=== PATIENT | male | born 1930 | race Caucasian/White ===

== ENCOUNTER 2018-06-22 09:42 | Emergency (ER) | payer MEDICARE ==
--- NOTE | 2018-06-22 09:57 | C.PDOC ---
History Of Present Illness 87 y/o male brought to ED by EMS after being called by [facility] for patient continuously presenting to police department asking for his check. 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 At ED patient is AAOx3, c/o unhealed wound to left leg for 1 month and denies any chest pain, nausea, vomiting or any other complaints at this time. Time Seen by Provider: 06/22/18 09:55 Chief Complaint (Nursing): Medical Clearance History Per: Patient History/Exam Limitations: no limitations Onset/Duration Of Symptoms: Days Current Symptoms Are (Timing): Still Present Past Medical History Reviewed: Historical Data, Nursing Documentation, Vital Signs Vital Signs: Last Vital Signs Temp 97.6 F 06/22/18 11:45 Pulse 54 L 06/22/18 13:30 Resp 18 06/22/18 13:30 BP 156/81 H 06/22/18 13:30 Pulse Ox 98 06/22/18 14:02 - Medical History PMH: No Chronic Diseases Surgical History: No Surg Hx Family History: States: No Known Family Hx - Social History Hx Tobacco Use: No Hx Alcohol Use: No Hx Substance Use: No - Immunization History Hx Tetanus Toxoid Vaccination: No Hx Influenza Vaccination: No Hx Pneumococcal Vaccination: No Review Of Systems Except As Marked, All Systems Reviewed And Found Negative. Musculoskeletal: Positive for: Leg Pain Neurological: Positive for: Confusion Physical Exam - Physical Exam Appears: Non-toxic, No Acute Distress Skin: Warm, Dry, No Rash Head: Atraumatic, Normacephalic Eye(s): bilateral: Normal Inspection Oral Mucosa: Moist Cardiovascular: Rhythm Regular Respiratory: Normal Breath Sounds, No Rales, No Rhonchi, No Wheezing Gastrointestinal/Abdominal: Soft, No Tenderness, No Guarding, No Rebound Extremity: Capillary Refill (<2 seconds), No Deformity, Swelling (and erythema to left lower mid tib/fib region) Pulses: Left Dorsalis Pedis: Normal Neurological/Psych: Oriented x3 (with occasional confusion), Normal Speech, Normal Cognition, Normal Motor, Normal Sensation ED Course And Treatment - Laboratory Results Result Diagrams: 06/22/18 10:02 06/22/18 10:02 ECG: Interpreted By Me, Viewed By Me ECG Rhythm: Sinus Rhythm, Nonspecific Changes Interpretation Of ECG: NSR @62 Bpm, Q-wave on lead 3, non specific t wave changes Rate From EC (BPM) O2 Sat by Pulse Oximetry: 98 (RA) Pulse Ox Interpretation: Normal Medical Decision Making Medical Decision Making: Assessment: Confusion Progress: Patient seen by case management Nora, her point of view, patient is okay for discharge. I tried calling home, no answer. Patient is AAOx3, knows his address, is well kept. At this time patient stable for discharge Patient discharged with diagnosis of Cellulitis/confusion resolved, instructed to follow up in 2 dyas with PMD Repeat BP: 158/62 Disposition Counseled Patient/Family Regarding: Studies Performed, Diagnosis, Need For Followup, Rx Given - Disposition Referrals: [facility] [Outside] Disposition: HOME/ ROUTINE Disposition Time: 14:03 Condition: STABLE Additional Instructions: follow up with Dr. Mercer within 2 days call to make an appointment take medications as prescribed return to ER if symptoms worsens or progress Prescriptions: Cephalexin [Keflex] 500 mg PO QID #40 capsule Instructions: Cellulitis (Skin Infection), Adult (DC) Forms: Gen Discharge Inst Bulgarian, Flipzu (Bulgarian) Print Language: UPPER SORBIAN - Clinical Impression Clinical Impression: Cellulitis - Scribe Statement The provider has reviewed the documentation as recorded by the Stephenie Ospina All medical record entries made by the Americoibdaysi were at my direction and personally dictated by me. I have reviewed the chart and agree that the record accurately reflects my personal performance of the history, physical exam, medical decision making, and the department course for this patient. I have also personally directed, reviewed, and agree with the discharge instructions and disposition.
[2018-06-22 10:11] LABS: BASO % 0.7 % (0.0-2.0); EOS # 0.1 K/uL (0.0-0.7); EOS % 2.3 % (0.0-4.0); HEMOGLOBIN 12.2 g/dL (12.0-18.0); LYMPH # 1.7 K/uL (1.0-4.3); LYMPH % 34.4 % (20.0-40.0); MEAN CELL VOLUME 80.5 fL (80.0-94.0); MEAN CORPUSCULAR HEMOGLOBIN 26.8 pg (27.0-31.0); MEAN CORPUSCULAR HGB CONC 33.3 g/dL (33.0-37.0); MEAN PLATELET VOLUME 8.2 fL (7.2-11.7); MONO # 0.5 K/uL (0.0-0.8); MONO % 9.9 % (0.0-10.0); NEUT # 2.6 K/uL (1.8-7.0); NEUT % 52.7 % (50.0-75.0); RBC 4.56 Mil/uL (4.40-5.90); RED CELL DISTRIBUTION WIDTH 19.1 % (11.5-14.5)
[2018-06-22 10:16] LABS: INR 1.1; PROTHROMBIN TIME 11.7 SECONDS (9.7-12.2)
[2018-06-22 10:21] LABS: ALB/GLOB RATIO 1.2 (1.0-2.1); ALBUMIN 4.1 g/dL (3.5-5.0); ALT/SGPT 25 U/L (21-72); AST/SGOT 30 U/L (17-59); BLOOD UREA NITROGEN 16 mg/dL (9-20); CALCIUM 9.5 mg/dl (8.6-10.4); GFR NON-AFRICAN AMERICAN > 60
[2018-06-22 10:26] LABS: SQUAMOUS EPITHIAL < 1 /hpf (0-5); URINE BILIRUBIN NEGATIVE (NEGATIVE); URINE BLOOD 2+ (NEGATIVE); URINE CLARITY Clear (Clear); URINE COLOR Yellow (YELLOW); URINE GLUCOSE (UA) NORMAL (Normal); URINE LEUKOCYTE ESTERASE NEG Leu/uL (Negative); URINE PROTEIN NEGATIVE (NEGATIVE); URINE UROBILINOGEN NORMAL mg/dL (0.2-1.0)
[2018-06-22 10:48] LABS: BARBITURATES, UR NEGATIVE (NEGATIVE); BENZODIAZEPINES, UR NEGATIVE (NEGATIVE); OPIATES, UR NEGATIVE (NEGATIVE); PHENCYCLIDINE, UR NEGATIVE (NEGATIVE)
--- NOTE | 2018-06-22 11:42 | RAD ---
HISTORY: AMS COMPARISON: None available TECHNIQUE: Chest PA and lateral FINDINGS: LUNGS: Increased lucencies especially within the bilateral upper lung cabrera compatible with underlying emphysema. Biapical pleural thickening. None scattered nodular opacities at the lung bases. 8 mm nodular density at the left lung base may be related to nipple shadow. No focal consolidation. Please note that chest x-ray has limited sensitivity for the detection of pulmonary masses. PLEURA: No significant pleural effusion identified. No definite pneumothorax . CARDIOVASCULAR: Cardiomegaly. Markedly ectatic aorta. Dense atherosclerotic calcifications. OSSEOUS STRUCTURES: Degenerative changes of the spine. VISUALIZED UPPER ABDOMEN: Unremarkable. OTHER FINDINGS: None. IMPRESSION: Emphysematous changes. Biapical pleural thickening. None scattered nodular opacities at the lung bases. 8 mm nodular density at the left lung base may be related to nipple shadow. Repeat chest x-ray with nipple markers may be considered. Cardiomegaly. Markedly ectatic aorta. Dense atherosclerotic calcifications.
[2018-06-22 11:53] VITALS: TEMP 97.6
--- NOTE | 2018-06-22 12:42 | CT ---
Date of service: 06/22/2018 PROCEDURE: CT HEAD WITHOUT CONTRAST. HISTORY: AMS COMPARISON: Comparison made with prior CT scan brain dated 08/25/2013. TECHNIQUE: Axial computed tomography images were obtained through the head/brain without intravenous contrast. Radiation dose: Total exam DLP = 919.4 mGy-cm. This CT exam was performed using one or more of the following dose reduction techniques: Automated exposure control, adjustment of the mA and/or kV according to patient size, and/or use of iterative reconstruction technique. FINDINGS: HEMORRHAGE: No acute parenchymal, subarachnoid or extra-axial hemorrhage. BRAIN: Moderate diffuse and confluent chronic white matter ischemic changes seen extending peripherally into the deep and subcortical white matter both cerebral hemispheres. Additionally, there are multiple more discrete chronic lacunar-type infarcts scattered about both basal nuclei extending superiorly into the dennis radiata. Chronic infarct changes in the left harshil versus crossing streak and beam hardening artifact. Note that the possibility of a small hyperacute infarct cannot be excluded on study. No obvious parenchymal nor extra-axial mass or collection seen on this noncontrast study. Moderate to fairly significant generalized volume loss. Vascular calcifications of the cavernous carotid and vertebral arteries. VENTRICLES: No obstructive hydrocephalus. CALVARIUM: No acute calvarial fractures. PARANASAL SINUSES: Mild mucosal thickening both maxillary antra. moderate mucosal thickening. Polypoid like focus mucosal thickening right chamber sphenoid sinus. Minor mucosal thickening noted within a few ethmoid air cells MASTOID AIR CELLS: Unremarkable as visualized. No inflammatory changes. OTHER FINDINGS: Changes of bilateral cataract surgery IMPRESSION: Moderate diffuse and confluent chronic white matter ischemic changes seen extending peripherally into the deep and subcortical white matter both cerebral hemispheres. Additionally, there are multiple more discrete chronic lacunar-type infarcts scattered about both basal nuclei extending superiorly into the dennis radiata. Chronic infarct changes in the left harshil versus crossing streak and beam hardening artifact. Note that the possibility of a small hyperacute infarct cannot be excluded on study. Moderate to fairly significant generalized volume loss.
--- NOTE | 2018-06-22 12:54 | RAD ---
Date of service: 06/22/2018 PROCEDURE: Radiographs of the left tibia and fibula. HISTORY: left swelling COMPARISON: None available. TECHNIQUE: Frontal and lateral views obtained. FINDINGS: BONES: No evidence of acute displaced fracture nor dislocation. Osseous structures appear intact. No obvious cortical destructive changes. Small anterior superior/inferior patellar enthesophyte. Tiny enthesophyte seen arising from the the tubercle. Suspect small suprapatellar joint effusion. . There are small calcaneal posterior and plantar surface calcaneal enthesophytes. . Mild vascular calcifications JOINT SPACES: Mild degenerative osteoarthritis left knee with questionable small on corticated intra-articular loose body. Mild degenerative osteoarthritis left tibiotalar articulation. OTHER FINDINGS: Mild diffuse infiltration changes within the subcutaneous the tissues nonspecific. Rule out cellulitis versus vascular etiologies. IMPRESSION: Mild diffuse infiltration changes subcutaneous tissues of uncertain etiology ; rule out cellulitis versus vascular causes. No acute fractures or evidence of cortical destructive changes.
[2018-06-22 14:23] VITALS: BP 163/69; PULSE 59; RESP 20; O2SAT 96
--- NOTE | 2018-06-22 17:40 | CARD ---
APPROVED REPORT Date of service: 06/22/2018 EKG Measurement Heart [id number] <Conclusion> Sinus rhythm with premature atrial complexes Possible Inferior infarct, age undetermined Abnormal ECG
--- NOTE | 2018-06-25 10:31 | VASCLAB ---
Date of service: 06/22/2018 PROCEDURE: Left Lower Extremity Venous Duplex Exam. HISTORY: leg swelling PRIORS: None. TECHNIQUE: Left common femoral, femoral, popliteal and posterior tibial, peroneal and great saphenous veins were evaluated. Flow was assessed with color Doppler, compressibility, assessment of phasic flow and augmentation response. Report prepared by CÉSAR Nava, RVT FINDINGS: LEFT: 1. Common Femoral Vein: 1.1. Compressibility - Fully compressible: Thrombus - None : Flow - Phasic: Augmentation -Normal: Reflux - None. 2. Femoral Vein: 2.1. Compressibility - Fully compressible: Thrombus - None: Flow - Phasic: Augmentation -Normal: Reflux - None. 3. Popliteal Vein: 3.1. Compressibility - Fully compressible: Thrombus - None: Flow - Phasic: Augmentation -Normal: Reflux - None. 4. Posterior Tibial Vein: 4.1. Compressibility - Fully compressible: Thrombus - None: Flow - Phasic: Augmentation -Normal: Reflux - None. 5. Peroneal Vein: 5.1. Compressibility - Fully compressible: Thrombus - None: Flow - Phasic: Augmentation -Normal: Reflux - None. 6. Great Saphenous Vein: 6.1. Compressibility - Fully compressible: Thrombus - None: Flow - Phasic: Augmentation - Normal: Reflux - None. OTHER FINDINGS: IMPRESSION: No evidence of deep or superficial vein thrombosis of the left lower extremity with excellent venous flow. Normal valve function noted of the left side. Normal venous flow noted in the right common femoral vein.
== END 2018-06-22 15:11 | disposition home or self-care (01) ==
LOC: C.ER 09:42
DX: L03.116 Cellulitis of left lower limb (principal)
CPT/HCPCS: 70450; 71046; 73590; 80053; 81001; 82140; 82948; 84443; 84484; 85025; 85610; 85730; 87086; 93005; 93971; 99285; G0480

== ENCOUNTER 2018-08-26 11:01 | Inpatient (IN) | payer MEDICARE ==
[~2018-08-26 11:01] MED LIST: Collagenase 250 Units/gm Ointment(30 gm) TOP ONE
[2018-08-26 11:49] LABS: BASO % 0.9 % (0.0-2.0); EOS # 0.1 K/uL (0.0-0.7); EOS % 1.7 % (0.0-4.0); HEMOGLOBIN 11.5 g/dL (12.0-18.0); LYMPH # 1.1 K/uL (1.0-4.3); LYMPH % 28.3 % (20.0-40.0); MEAN CELL VOLUME 82.7 fL (80.0-94.0); MEAN CORPUSCULAR HEMOGLOBIN 27.5 pg (27.0-31.0); MEAN CORPUSCULAR HGB CONC 33.2 g/dL (33.0-37.0); MEAN PLATELET VOLUME 7.6 fL (7.2-11.7); MONO # 0.3 K/uL (0.0-0.8); MONO % 8.9 % (0.0-10.0); NEUT # 2.3 K/uL (1.8-7.0); NEUT % 60.2 % (50.0-75.0); RBC 4.21 Mil/uL (4.40-5.90); RED CELL DISTRIBUTION WIDTH 15.8 % (11.5-14.5); WHITE BLOOD COUNT 3.8 K/uL (4.8-10.8)
[2018-08-26 11:59] LABS: BLOOD UREA NITROGEN 17 mg/dL (9-20); CALCIUM 9.4 mg/dl (8.6-10.4); GFR NON-AFRICAN AMERICAN > 60
--- NOTE | 2018-08-26 12:29 | C.PDOC ---
History Of Present Illness 88 y/o male, GUSTABO, with history of dementia, presents to ED complaining of left leg pain. 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 States that patient kept coming back to the station to collect his paycheck but has not worked in years. Patient was seen here on 06/22/18; as per note, patient complained of unhealed wound on the left leg x1 month. Noted AAOx3 and was discharged on Keflex. HPI is limited due to his clinical condition. <VasylSasha - Last Filed: 08/26/18 13:29> History Per: Patient Onset/Duration Of Symptoms: Days Current Symptoms Are (Timing): Still Present <Sasha Fallon - Last Filed: 08/26/18 13:29> <Christi Henderson - Last Filed: 08/26/18 18:42> Time Seen by Provider: 08/26/18 11:19 Chief Complaint (Nursing): Altered Mental Status Past Medical History Reviewed: Historical Data, Nursing Documentation, Vital Signs Vital Signs: Last Vital Signs Temp 98.1 F 08/26/18 11:03 Pulse 74 08/26/18 11:03 Resp 18 08/26/18 11:03 BP 140/88 08/26/18 11:03 Pulse Ox 97 08/26/18 11:03 - Medical History PMH: Denies: Chronic Kidney Disease Family History: States: No Known Family Hx - Social History Hx Tobacco Use: No Hx Alcohol Use: No Hx Substance Use: No - Immunization History Hx Tetanus Toxoid Vaccination: No Hx Influenza Vaccination: No Hx Pneumococcal Vaccination: No <VasylSasha - Last Filed: 08/26/18 13:29> Vital Signs: Last Vital Signs Temp 98.3 F 08/26/18 13:51 Pulse 61 08/26/18 13:50 Resp 18 08/26/18 13:50 BP 159/66 H 08/26/18 13:50 Pulse Ox 100 08/26/18 13:50 <Christi Henderson - Last Filed: 08/26/18 18:42> Review Of Systems Except As Marked, All Systems Reviewed And Found Negative. Constitutional: Negative for: Fever, Chills Cardiovascular: Negative for: Chest Pain Respiratory: Negative for: Shortness of Breath Musculoskeletal: Positive for: Leg Pain (left) Skin: Negative for: Rash Neurological: Negative for: Weakness, Numbness <Sasha Fallon Last Filed: 08/26/18 13:29> Musculoskeletal: Positive for: Leg Pain <Christi Henderson Last Filed: 08/26/18 18:42> Physical Exam - Physical Exam Appears: Non-toxic, No Acute Distress Skin: Warm, Dry, Other (Healing wound on left leg) Head: Atraumatic Eye(s): bilateral: Normal Inspection Oral Mucosa: Moist Cardiovascular: Rhythm Regular, No Murmur Respiratory: Normal Breath Sounds, No Rales, No Rhonchi, No Wheezing Extremity: No Pedal Edema, No Calf Tenderness, Capillary Refill (less than 2 seconds) <Sasha Fallon Last Filed: 08/26/18 13:29> - Physical Exam Skin: Other <Christi Henderson Last Filed: 08/26/18 18:42> ED Course And Treatment - Laboratory Results Result Diagrams: 08/26/18 11:44 08/26/18 11:44 O2 Sat by Pulse Oximetry: 97 (RA) Pulse Ox Interpretation: Normal - Other Rad L TIB FIB X-Ray: Interpreted by Me (NEG) <Sasha Fallon Last Filed: 08/26/18 13:29> - Laboratory Results Result Diagrams: 08/26/18 11:44 08/26/18 11:44 - CT Scan/US CT Head Other Rad Studies (CT/US): Read By Radiologist, Radiology Report Reviewed CT/US Interpretation: FINDINGS: HEMORRHAGE: No intracranial hemorrhage. BRAIN: Good corticomedullary differentiation is seen. Reiterated diffuse cerebral atrophy and chronic microangiopathy. No suspicious extra-axial fluid collection is identified and the midline brain anatomy appears grossly nonfocal as imaged. By thalamic chronic lacunes reiterated. No positive mass effect throughout. Bilateral cavernous ICA and bilateral distal cervical vertebral arterial atherosclerosis reiterated. VENTRICLES: Unremarkable. No hydrocephalus. CALVARIUM: Unremarkable. PARANASAL SINUSES: Limited bilateral ethmoid sinus disease appreciated. MASTOID AIR CELLS: Unremarkable as visualized. No inflammatory changes. OTHER FINDINGS: None. IMPRESSION: Stable age related neuro degenerative changes are identified without definite acute intracranial findings once again. <Christi Henderson Last Filed: 08/26/18 18:42> Progress - Re-Evaluation Re-evaluation Note: 08/26/18 12:55 PER PRIOR ER RECORD, PMD = DR VARGAS D/W DR VARGAS AWARE OF ER FINDINGS WILL ADMIT. CT, CXR PENDING 08/26/18 13:02 MED RESIDENT NOTIFIED - Data Reviewed Data Reviewed: Lab, Diagnostic imaging, EKG <Sasha Fallon - Last Filed: 08/26/18 13:29> Medical Decision Making Medical Decision Making: Plan: --CT Head --EKG --Labs --Chest X-Ray --Ancef --Left Tibia Fibula X-Ray <Sasha Fallon - Last Filed: 08/26/18 13:29> Disposition Counseled Patient/Family Regarding: Studies Performed, Diagnosis - Disposition Disposition Time: 13:00 - POA Present On Arrival: None <Sasha Fallon - Last Filed: 08/26/18 13:29> <Christi Henderson - Last Filed: 08/26/18 18:42> - Disposition Disposition: HOSPITALIZED Condition: SERIOUS - Clinical Impression Clinical Impression: Cellulitis, Confusion - Scribe Statement The provider has reviewed the documentation as recorded by the Stephenie Gomez Provider Attestation: All medical record entries made by the Stephenie were at my direction and personally dictated by me. I have reviewed the chart and agree that the record accurately reflects my personal performance of the history, physical exam, medical decision making, and the department course for this patient. I have also personally directed, reviewed, and agree with the discharge instructions and disposition. <Sasha Fallon - Last Filed: 08/26/18 13:29> Addendum Addendum: 08/26/18 18:42 CARISA Henderson had no involvement in the care or contact with this patient <Christi Henderson - Last Filed: 08/26/18 18:42>
[2018-08-26] MEDS ORDERED: ceFAZolin IV 1 gm in Dextrose 1 GM/50 ML BAG IVPB STA (12:54)
[2018-08-26] MEDS ORDERED: ceFAZolin 1 gm in NS 1 GM/100 ML BAG IVPB ONE (13:14)
--- NOTE | 2018-08-26 13:36 | CT ---
Date of service: 08/26/2018 PROCEDURE: CT HEAD WITHOUT CONTRAST. HISTORY: AMS COMPARISON: None available. TECHNIQUE: Axial computed tomography images were obtained through the head/brain without intravenous contrast. Radiation dose: Total exam DLP = 1076.33 mGy-cm. This CT exam was performed using one or more of the following dose reduction techniques: Automated exposure control, adjustment of the mA and/or kV according to patient size, and/or use of iterative reconstruction technique. FINDINGS: HEMORRHAGE: No intracranial hemorrhage. BRAIN: Good corticomedullary differentiation is seen. Reiterated diffuse cerebral atrophy and chronic microangiopathy. No suspicious extra-axial fluid collection is identified and the midline brain anatomy appears grossly nonfocal as imaged. By thalamic chronic lacunes reiterated. No positive mass effect throughout. Bilateral cavernous ICA and bilateral distal cervical vertebral arterial atherosclerosis reiterated. VENTRICLES: Unremarkable. No hydrocephalus. CALVARIUM: Unremarkable. PARANASAL SINUSES: Limited bilateral ethmoid sinus disease appreciated. MASTOID AIR CELLS: Unremarkable as visualized. No inflammatory changes. OTHER FINDINGS: None. IMPRESSION: Stable age related neuro degenerative changes are identified without definite acute intracranial findings once again.
--- NOTE | 2018-08-26 14:40 | CP.PCM.HP ---
History of Present Illness - History of Present Illness History of Present Illness: History and Physical - Dr. Mercer's Service HPI: 88 y/o male with PMHx of CAD presents to the emergency room via EMS with confusion and LLE cellulitis. 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 The police sent him to the emergency room via EMS because of his confusion. Of note, he also has been having a LLE wound present for 15 days. Patient is concerned about his wound, and thinks this is the only reason why he is in the hospital. Patient is a poor historian. Although he knows his name and , he thinks the year is 1979. He was unaccompanied in the emergency room, but his son's number was able to be obtained. Providers spoke briefly to his son to try to get a good history. Patient denies pain in his wound and thinks it has stayed the same for 15 days: redness around a black eschar. It has never been tender and he has been using menthol on it. Denies fever, chills, headaches, dizziness, nausea/vomiting, diarrhea, sore throat, cough, chest pain, shortness of breath, recent travels, sick contact, weight changes. ROS: as per HPI PMHx: per son, CAD PSHx: per son, patient had a heart surgery and has stents 4 years ago FHx: Denies SocHx: denies tobacco, EtOH is social; three or less glasses of beer or wine in a weekend, denies illicit drugs. 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 in [place] but no longer works per emergency room Meds: per son: metoprolol 25 mg, lisinopril 20 mg, atorvastatin 40 mg, aspirin 81 mg Allergies: NKDA Present on Admission - Present on Admission Any Indicators Present on Admission: Yes Review of Systems - Constitutional Constitutional: As Per HPI Past Patient History - Past Social History Smoking Status: Never Smoked - CARDIAC Hx Cardiac Disorders: No - PULMONARY Hx Respiratory Disorders: No - NEUROLOGICAL Hx Neurological Disorder: No - HEENT Hx HEENT Problems: No - RENAL Hx Chronic Kidney Disease: No - ENDOCRINE/METABOLIC Hx Endocrine Disorders: No - HEMATOLOGICAL/ONCOLOGICAL Hx Blood Disorders: No - INTEGUMENTARY Hx Dermatological Problems: No - MUSCULOSKELETAL/RHEUMATOLOGICAL Hx Musculoskeletal Disorders: No - GASTROINTESTINAL Hx Gastrointestinal Disorders: No - GENITOURINARY/GYNECOLOGICAL Hx Genitourinary Disorders: No - PSYCHIATRIC Hx Substance Use: No - SURGICAL HISTORY Hx Surgeries: Yes Hx Herniorrhaphy: Yes - ANESTHESIA Hx Anesthesia: No Meds Allergies/Adverse Reactions: Allergies Allergy/AdvReac Type Severity Reaction Status Date / Time No Known Allergies Allergy Verified 08/26/18 11:09 Physical Exam - Constitutional Appears: Well, No Acute Distress - Head Exam Head Exam: ATRAUMATIC, NORMAL INSPECTION - Eye Exam Eye Exam: EOMI, Normal appearance, PERRL - ENT Exam ENT Exam: Mucous Membranes Moist - Neck Exam Neck exam: Positive for: Normal Inspection. Negative for: Lymphadenopathy - Respiratory Exam Respiratory Exam: Clear to Auscultation Bilateral, NORMAL BREATHING PATTERN - Cardiovascular Exam Cardiovascular Exam: REGULAR RHYTHM - GI/Abdominal Exam GI & Abdominal Exam: Normal Bowel Sounds, Soft - Extremities Exam Additional comments: left anterior tibialis with black eschar approx 5 cm x 2 cm with surrounding erythema, warm but nontender 2+ pitting edema bilaterally on tibias and ankles - Neurological Exam Additional comments: Alert and oriented x 2 (does not know the year) - Psychiatric Exam Psychiatric exam: Normal Affect, Normal Mood Results - Vital Signs Recent Vital Signs: Last Vital Signs Temp 98.3 F 08/26/18 13:51 Pulse 61 08/26/18 13:50 Resp 18 08/26/18 13:50 BP 159/66 H 08/26/18 13:50 Pulse Ox 100 08/26/18 13:50 - Labs Result Diagrams: 08/26/18 11:44 08/26/18 11:44 Labs: Laboratory Results - last 24 hr 08/26/18 08/26/18 11:44 11:44 WBC 3.8 L RBC 4.21 L Hgb 11.5 L Hct 34.8 L MCV 82.7 D MCH 27.5 MCHC 33.2 RDW 15.8 H Plt Count 215 MPV 7.6 Neut % (Auto) 60.2 Lymph % (Auto) 28.3 [place] % (Auto) 8.9 Eos % (Auto) 1.7 Baso % (Auto) 0.9 Neut # (Auto) 2.3 Lymph # (Auto) 1.1 [place] # (Auto) 0.3 Eos # (Auto) 0.1 Baso # (Auto) 0.0 Sodium 146 Potassium 3.9 Chloride 108 H Carbon Dioxide 26 Anion Gap 15 BUN 17 Creatinine 0.9 Est GFR ( Amer) > 60 Est GFR (Non-Af Amer) > 60 Random Glucose 84 Calcium 9.4 Assessment & Plan - Assessment and Plan (Free Text) Assessment: 88 y/o male with hx of CAD presents to the emergency room with confusion and LLE cellulitis. Patient is hemodynamically stable and will be admitted as inpatient under Dr. Mercer's service. LLE cellulitis -patient currently afebrile, VS stable, and no leukocytosis -ED gave cefazolin 1g IV x 1 -cefazolin 1g IV TID x 7-14 days depending on clinical improvement -maida cellulitic borders in ED and track changes daily -if AMS resolves and LLE improving during hospitalization, consider transition to PO abx for discharge -consult ID as needed Altered mental status -unsure of baseline mental status; will inquire son -2/2 metabolic vs. encephalopathy vs. infectious -CT head negative r/o CVA -maintain sleep hygiene/sleep-wake cycle as inpatient -B12, RPR, TSH pending -CXR pending -UA and urine drug screen pending; per RN patient still needs to give a urine sample CAD -c/w metoprolol tartrate 25 mg -c/w lisinopril 20 mg -c/w atorvastatin 40 mg -c/w aspirin 81 mg Code: full DVT ppx: lovenox 40 mg q12 sq GI ppx: protonix 40 mg PO Son Yonny): [phone] Ruslan Lewis PGY1 Decision To Admit - Pt Status Changed To: Hospital Disposition Of: Inpatient - Admit Certification Admit to Inpatient:: After my assessment, the patient will require hospitalization for at least two midnights. This is because of the severity of symptoms shown, intensity of services needed, and/or the medical risk in this patient being treated as an outpatient. - InPatient: Physician Admission Certification:: Ruslan - . Bed Request Type: Telemetry
[2018-08-26] MEDS ORDERED: ceFAZolin IV 1 gm in Dextrose 1 GM/50 ML BAG IVPB SCH (15:30)
[2018-08-26 15:48] LABS: URINE BILIRUBIN NEGATIVE (NEGATIVE); URINE BLOOD 1+ (NEGATIVE); URINE CLARITY Clear (Clear); URINE COLOR Yellow (YELLOW); URINE GLUCOSE (UA) NORMAL (Normal); URINE LEUKOCYTE ESTERASE NEG Leu/uL (Negative); URINE PROTEIN NEGATIVE (NEGATIVE); URINE UROBILINOGEN NORMAL mg/dL (0.2-1.0)
[2018-08-26 16:05] LABS: BARBITURATES, UR NEGATIVE (NEGATIVE); BENZODIAZEPINES, UR NEGATIVE (NEGATIVE); OPIATES, UR NEGATIVE (NEGATIVE); PHENCYCLIDINE, UR NEGATIVE (NEGATIVE)
--- NOTE | 2018-08-26 17:01 | RAD ---
Date of service: 08/26/2018 PROCEDURE: Radiographs of the left tibia and fibula. HISTORY: WOUND COMPARISON: None available. TECHNIQUE: Frontal and lateral views obtained. FINDINGS: BONES: No fracture or destructive lesion. JOINT SPACES: Unremarkable. OTHER FINDINGS: Reticular markings are increased at the mid to distal leg subcutaneous fat of uncertain origin. No gross dermal thickening accompanying the finding that would be suspicious for cellulitis. IMPRESSION: No acute fracture dislocation left tibia or fibula. Questionable edema in the subcutaneous fat of the mid to distal distal left leg soft tissues
[2018-08-26 17:02] VITALS: RESP 20
--- NOTE | 2018-08-26 17:11 | RAD ---
Date of service: 08/26/2018 PROCEDURE: CHEST RADIOGRAPH, 1 VIEW HISTORY: AMS COMPARISON: Chest radiographs 06/22/2018. FINDINGS: LUNGS: No interval pulmonary disease appreciated bilaterally. PLEURA: No pneumothorax or pleural fluid seen. CARDIOVASCULAR: Stable cardiomegaly. No pulmonary vascular congestion. Calcific atherosclerotic changes are seen related to the thoracic aorta. OSSEOUS STRUCTURES: No significant abnormalities. VISUALIZED UPPER ABDOMEN: Normal. OTHER FINDINGS: None. IMPRESSION: No interval acute cardiopulmonary disease appreciable. Cardiomegaly stable.
[2018-08-27] MEDS ORDERED: Pantoprazole 40 mg EC Tab PO SCH (10:00)
[2018-08-27] MEDS ORDERED: Enoxaparin 40 mg Syringe SC SCH (10:00)
[2018-08-27] MEDS ORDERED: Pneumococcal 23-Valent Vaccine IM ONE (10:00)
--- NOTE | 2018-08-27 10:31 | CP.PCM.DIS ---
Provider - Provider Date of Admission: 08/26/18 13:02 Attending physician: Godwin Mercer Jr, MD Time Spent in preparation of Discharge (in minutes): 45 Hospital Course - Lab Results Lab Results: Most Recent Lab Values WBC 3.8 K/uL (4.8-10.8) L 08/26/18 11:44 RBC 4.21 Mil/uL (4.40-5.90) L 08/26/18 11:44 Hgb 11.5 g/dL (12.0-18.0) L 08/26/18 11:44 Hct 34.8 % (35.0-51.0) L 08/26/18 11:44 MCV 82.7 fL (80.0-94.0) D 08/26/18 11:44 MCH 27.5 pg (27.0-31.0) 08/26/18 11:44 MCHC 33.2 g/dL (33.0-37.0) 08/26/18 11:44 RDW 15.8 % (11.5-14.5) H 08/26/18 11:44 Plt Count 215 K/uL (130-400) 08/26/18 11:44 MPV 7.6 fL (7.2-11.7) 08/26/18 11:44 Neut % (Auto) 60.2 % (50.0-75.0) 08/26/18 11:44 Lymph % (Auto) 28.3 % (20.0-40.0) 08/26/18 11:44 G[place] % (Auto) 8.9 % (0.0-10.0) 08/26/18 11:44 Eos % (Auto) 1.7 % (0.0-4.0) 08/26/18 11:44 Baso % (Auto) 0.9 % (0.0-2.0) 08/26/18 11:44 Neut # (Auto) 2.3 K/uL (1.8-7.0) 08/26/18 11:44 Lymph # (Auto) 1.1 K/uL (1.0-4.3) 08/26/18 11:44 Gove # (Auto) 0.3 K/uL (0.0-0.8) 08/26/18 11:44 Eos # (Auto) 0.1 K/uL (0.0-0.7) 08/26/18 11:44 Baso # (Auto) 0.0 K/uL (0.0-0.2) 08/26/18 11:44 Sodium 146 mmol/L (132-148) 08/26/18 11:44 Potassium 3.9 mmol/L (3.6-5.2) 08/26/18 11:44 Chloride 108 mmol/L (98-107) H 08/26/18 11:44 Carbon Dioxide 26 mmol/L (22-30) 08/26/18 11:44 Anion Gap 15 (10-20) 08/26/18 11:44 BUN 17 mg/dL (9-20) 08/26/18 11:44 Creatinine 0.9 mg/dL (0.8-1.5) 08/26/18 11:44 Est GFR ( Amer) > 60 08/26/18 11:44 Est GFR (Non-Af Amer) > 60 08/26/18 11:44 POC Glucose (mg/dL) 116 mg/dL (65-110) H 08/26/18 11:06 Random Glucose 84 mg/dL (75-110) 08/26/18 11:44 Calcium 9.4 mg/dl (8.6-10.4) 08/26/18 11:44 Vitamin B12 268 pg/mL (239-931) 08/26/18 11:44 TSH 3rd Generation 1.15 mIU/L (0.46-4.68) 08/26/18 11:44 Urine Color Yellow (YELLOW) 08/26/18 15:37 Urine Clarity Clear (Clear) 08/26/18 15:37 Urine pH 5.0 (5.0-8.0) 08/26/18 15:37 Ur Specific [place] 1.017 (1.003-1.030) 08/26/18 15:37 Urine Protein Negative mg/dL (NEGATIVE) 08/26/18 15:37 Urine Glucose (UA) Normal mg/dL (Normal) 08/26/18 15:37 Urine Ketones Negative mg/dL (NEGATIVE) 08/26/18 15:37 Urine Blood 1+ (NEGATIVE) H 08/26/18 15:37 Urine Nitrate Negative (NEGATIVE) 08/26/18 15:37 Urine Bilirubin Negative (NEGATIVE) 08/26/18 15:37 Urine Urobilinogen Normal mg/dL (0.2-1.0) 08/26/18 15:37 Ur Leukocyte Esterase Neg Solis/uL (Negative) 08/26/18 15:37 Urine WBC (Auto) < 1 /hpf (0-5) 08/26/18 15:37 Urine RBC (Auto) 5 /hpf (0-3) H 08/26/18 15:37 Urine Opiates Screen Negative (NEGATIVE) 08/26/18 15:36 Urine Methadone Screen Negative (NEGATIVE) 08/26/18 15:36 Ur Barbiturates Screen Negative (NEGATIVE) 08/26/18 15:36 Ur Phencyclidine Scrn Negative (NEGATIVE) 08/26/18 15:36 Ur Amphetamines Screen Negative (NEGATIVE) 08/26/18 15:36 U Benzodiazepines Scrn Negative (NEGATIVE) 08/26/18 15:36 U Oth Cocaine Metabols Negative (NEGATIVE) 08/26/18 15:36 U Cannabinoids Screen Negative (NEGATIVE) 08/26/18 15:36 RPR Nonreactive (NONREACTIVE) 08/26/18 15:03 - Hospital Course Hospital Course: HPI: 88 y/o male with PMHx of CAD presents to the emergency room via EMS with confusion and LLE cellulitis. 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 The police sent him to the emergency room via EMS because of his confusion. Of note, he also has been havin g a LLE wound present for 15 days. Patient is concerned about his wound, and thinks this is the only reason why he is in the hospital. . Patient is a poor historian. Although he knows his name and , he thinks the year is 1979. He was unaccompanied in the emergency room, but his son's number was able to be obtained. Providers spoke briefly to his son to try to get a good history. Patient denies pain in his wound and thinks it has stayed the same for 15 days: redness around a black eschar. It has never been tender and he has been using menthol on it. Denies fever, chills, headaches, dizziness, nausea/vomiting, diarrhea, sore throat, cough, chest pain, shortness of breath, recent travels, sick contact, weight changes. ROS: as per HPI PMHx: per son, CAD PSHx: per son, patient had a heart surgery and has stents 4 years ago FHx: Denies SocHx: denies tobacco, EtOH is social; three or less glasses of beer or wine in a weekend, denies illicit drugs. 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 Lisinopril increased to 40 mg. HCTZ 12.5 mg added. Pt given Santyl and xeroform with a tegaderm cover for treatment and protection of venous stasis wound. Pt HR was monitored found to have asymptomatic APCs. Pt stable for discharge. Imaging: LLE Xray: No frax Head CT: neg for acute pathology this is a summary, please refer to [facility] for complete infor take care and be well C Kyriakides DO Discharge Exam - Head Exam Head Exam: ATRAUMATIC, NORMAL INSPECTION - Additional Findings Additional findings: - Constitutional Appears: Well, No Acute Distress - Head Exam Head Exam: ATRAUMATIC, NORMAL INSPECTION - Eye Exam Eye Exam: EOMI, Normal appearance, PERRL - ENT Exam ENT Exam: Mucous Membranes Moist - Neck Exam Neck exam: Positive for: Normal Inspection. Negative for: Lymphadenopathy - Respiratory Exam Respiratory Exam: Clear to Auscultation Bilateral, NORMAL BREATHING PATTERN - Cardiovascular Exam Cardiovascular Exam: REGULAR RHYTHM - GI/Abdominal Exam GI & Abdominal Exam: Normal Bowel Sounds, Soft - Extremities Exam Additional comments: left anterior tibialis with black eschar approx 5 cm x 2 cm with surrounding erythema, warm but nontender, covered in santyl, xeroform and tegaderm 2+ pitting edema bilaterally on tibias and ankles - Neurological Exam Additional comments: Alert and oriented x 2 (does not know the year) - Psychiatric Exam Psychiatric exam: Normal Affect, Normal Mood Discharge Plan - Discharge Medications Prescriptions: Aspirin [Ecotrin] 81 mg PO DAILY #30 tabec Collagenase [Santyl] 1 gm TOP DAILY #1 tube hydroCHLOROthiazide [Microzide] 12.5 mg PO DAILY #30 cap Lisinopril [Zestril] 40 mg PO DAILY #30 tab Metoprolol Tartrate [Lopressor] 25 mg PO DAILY #30 tab risperiDONE [RisperDAL Tab] 1 mg PO DAILY #7 tab Rosuvastatin Calcium [Crestor] 5 mg PO HS #30 tab - Follow Up Plan Condition: SERIOUS Disposition: HOME/ ROUTINE Additional Instructions: Pt it to be discharged home Pt is to take the following medications as prescribed metoprolol tartrate 25 mg at 8am lisinopril 40 mg at 8am crestor 5 mg with meals aspirin 81 mg at 8am risperdal 1mg at 8am Pt is to apply a layer of santyl on wound and change dressings. Pt is to follow up with Dr Mercer in office within this week to continue with medical management and wound care. take care and be well Bhumika Buchanan DO Referrals: Godwin Mercer Jr., MD [Medical Doctor] -
[2018-08-27] MEDS ORDERED: Influenza Vaccine 60 MCG/0.5 ML SYR (3 yr & up) IM ONE (12:07)
[2018-08-27 15:46] VITALS: BP 155/78; PULSE 68; TEMP 98.1; O2SAT 99
== END 2018-08-27 16:48 | disposition home or self-care (01) | DRG 603 ==
LOC: C.ER 11:01 → C.9E 13:02 → C.3T 13:39 → C.9E 14:34 → C.3T 16:08 → C.6T 08-27 00:17
PROVIDERS: ADMIT Internal Medicine; ATTEND Internal Medicine
DX: L03.116 Cellulitis of left lower limb (principal); L97.929 Non-pressure chronic ulcer of unspecified part of left lower leg with unspecified severity; I87.2 Venous insufficiency (chronic) (peripheral); I25.10 Atherosclerotic heart disease of native coronary artery without angina pectoris; R41.82 Altered mental status, unspecified; F03.90 Unspecified dementia, unspecified severity, without behavioral disturbance, psychotic disturbance, mood disturbance, and anxiety; Z95.5 Presence of coronary angioplasty implant and graft

== ENCOUNTER 2019-01-18 09:08 | Inpatient (IN) | payer MEDICARE ==
[2019-01-18 09:20] VITALS: BMI 21.1
[2019-01-18] MEDS ORDERED: cefTRIAXone IV 1 gm in Dextros 50 ML IVPB ONE (10:18)
[2019-01-18] MEDS ORDERED: Vancomycin 1 gm/NS 200 ml 1 GM/200 ML BAG IVPB STA (10:18)
[2019-01-18 10:52] LABS: BASO # 0.1 K/uL (0.0-0.2); BASO % 1.1 % (0.0-2.0); EOS # 0.3 K/uL (0.0-0.7); EOS % 6.4 % (0.0-4.0); HEMOGLOBIN 11.3 g/dL (12.0-18.0); LYMPH # 1.3 K/uL (1.0-4.3); LYMPH % 27.2 % (20.0-40.0); MEAN CELL VOLUME 81.5 fL (80.0-94.0); MEAN CORPUSCULAR HEMOGLOBIN 26.6 pg (27.0-31.0); MEAN CORPUSCULAR HGB CONC 32.6 g/dL (33.0-37.0); MEAN PLATELET VOLUME 7.9 fL (7.2-11.7); MONO # 0.5 K/uL (0.0-0.8); MONO % 10.6 % (0.0-10.0); NEUT # 2.7 K/uL (1.8-7.0); NEUT % 54.7 % (50.0-75.0); RBC 4.24 Mil/uL (4.40-5.90); RED CELL DISTRIBUTION WIDTH 15.7 % (11.5-14.5); WHITE BLOOD COUNT 4.9 K/uL (4.8-10.8)
[2019-01-18 10:58] LABS: SQUAMOUS EPITHIAL < 1 /hpf (0-5); URINE BILIRUBIN NEGATIVE (NEGATIVE); URINE BLOOD 2+ (NEGATIVE); URINE CLARITY Hazy (Clear); URINE COLOR Yellow (YELLOW); URINE GLUCOSE (UA) NORMAL (Normal); URINE LEUKOCYTE ESTERASE NEG Leu/uL (Negative); URINE PROTEIN NEGATIVE (NEGATIVE); URINE UROBILINOGEN NORMAL mg/dL (0.2-1.0)
[2019-01-18 11:03] LABS: INR 1.1; PROTHROMBIN TIME 12.5 SECONDS (9.7-12.2)
[2019-01-18 11:13] LABS: ALB/GLOB RATIO 1.1 (1.0-2.1); AST/SGOT 23 U/L (17-59); BLOOD UREA NITROGEN 27 mg/dL (9-20); CALCIUM 9.2 mg/dl (8.6-10.4); GFR NON-AFRICAN AMERICAN > 60
[2019-01-18 11:14] LABS: ALT/SGPT < 6 U/L (21-72)
--- NOTE | 2019-01-18 11:14 | C.PDOC ---
History Of Present Illness 88 y/o male with a PMHx of dementia, presents to the ED from home for evaluation of left leg swelling, redness, and purulent discharge, worsening over the past couple of months. Patient is a poor historian. He was reportedly seen and admitted to another institution last month. No fevers. No other complaints. Time Seen by Provider: 01/18/19 09:29 Chief Complaint (Nursing): Abnormal Skin Integrity History Per: Patient History/Exam Limitations: no limitations Onset/Duration Of Symptoms: Days Current Symptoms Are (Timing): Still Present Past Medical History Reviewed: Historical Data, Nursing Documentation, Vital Signs Vital Signs: Last Vital Signs Temp 97.8 F 01/18/19 09:21 Pulse 90 01/18/19 09:21 Resp 19 01/18/19 09:21 BP 124/71 01/18/19 09:21 Pulse Ox 97 01/18/19 09:21 - Medical History PMH: Atrial Fibrillation, Dementia, HTN, Hypercholesterolemia Denies: Chronic Kidney Disease Family History: States: Unknown Family Hx - Social History Hx Tobacco Use: No Hx Alcohol Use: No (FORMER) Hx Substance Use: No - Immunization History Hx Tetanus Toxoid Vaccination: No Hx Influenza Vaccination: No Hx Pneumococcal Vaccination: No Review Of Systems Constitutional: Negative for: Fever, Chills Cardiovascular: Negative for: Chest Pain Respiratory: Negative for: Shortness of Breath Gastrointestinal: Negative for: Vomiting, Abdominal Pain, Diarrhea Musculoskeletal: Positive for: Leg Pain (with swelling and redness) Skin: Positive for: Rash (to left leg, +purulent discharge) Neurological: Negative for: Weakness, Numbness Physical Exam - Physical Exam Appears: Non-toxic, No Acute Distress Skin: Warm, Rash (Left leg with diffuse erythema, and purulent drainage) Head: Atraumatic, Normacephalic Eye(s): bilateral: Normal Inspection, PERRL, EOMI Neck: Normal ROM Chest: Symmetrical Cardiovascular: Rhythm Regular, No Murmur Respiratory: Normal Breath Sounds, No Rales, No Rhonchi, No Wheezing Gastrointestinal/Abdominal: Soft, No Tenderness, No Distention Extremity: Normal ROM, Capillary Refill (less than 2sec), No Deformity, Swelling (diffuse edema to left lower leg) Pulses: Left Dorsalis Pedis: Normal, Right Dorsalis Pedis: Normal Neurological/Psych: Oriented x3, Normal Speech, Normal Motor, Normal Sensation ED Course And Treatment - Laboratory Results Result Diagrams: 01/18/19 10:46 01/18/19 10:46 Lab Results: PT 12.5 SECONDS (9.7-12.2) H 01/18/19 10:46 INR 1.1 01/18/19 10:46 APTT 35 SECONDS (21-34) H 01/18/19 10:46 Urine Color Yellow (YELLOW) 01/18/19 10:46 Urine Clarity Hazy (Clear) 01/18/19 10:46 Urine pH 5.0 (5.0-8.0) 01/18/19 10:46 Ur Specific [place] 1.023 (1.003-1.030) 01/18/19 10:46 Urine Protein Negative mg/dL (NEGATIVE) 01/18/19 10:46 Urine Glucose (UA) Normal mg/dL (Normal) 01/18/19 10:46 Urine Ketones Negative mg/dL (NEGATIVE) 01/18/19 10:46 Urine Blood 2+ (NEGATIVE) H 01/18/19 10:46 Urine Nitrate Negative (NEGATIVE) 01/18/19 10:46 Urine Bilirubin Negative (NEGATIVE) 01/18/19 10:46 Urine Urobilinogen Normal mg/dL (0.2-1.0) 01/18/19 10:46 Ur Leukocyte Esterase Neg Solis/uL (Negative) 01/18/19 10:46 Urine WBC (Auto) 1 /hpf (0-5) 01/18/19 10:46 Urine RBC (Auto) 11 /hpf (0-3) H 01/18/19 10:46 Ur Squamous Epith Cells < 1 /hpf (0-5) 01/18/19 10:46 Hyaline Casts 3-5 /lpf (0-2) H 01/18/19 10:46 O2 Sat by Pulse Oximetry: 97 (on RA) Pulse Ox Interpretation: Normal Medical Decision Making Medical Decision Making: Impression: Cellulitis, LLE Initial Plan: - CMP - CBC - PTT/PT - Blood culture - Wound culture - Urine culture - UA - Venous duplex, LLE Patient started on IV vanco and rocephin. worseningcellultis not improving outpt accepted dr hall Disposition - Disposition Disposition: HOSPITALIZED Disposition Time: 12:25 Condition: STABLE - Clinical Impression Clinical Impression: Cellulitis - Scribe Statement The provider has reviewed the documentation as recorded by the Stephenie Horvath Provider Attestation: All medical record entries made by the Stephenie were at my direction and personally dictated by me. I have reviewed the chart and agree that the record accurately reflects my personal performance of the history, physical exam, medical decision making, and the department course for this patient. I have also personally directed, reviewed, and agree with the discharge instructions and disposition. Decision To Admit - Pt Status Changed To: Hospital Disposition Of: Inpatient - Admit Certification Admit to Inpatient:: After my assessment, the patient will require hos pitalization for at least two midnights. This is because of the severity of symptoms shown, intensity of services needed, and/or the medical risk in this patient being treated as an outpatient. - InPatient: Physician Admission Certification: I certify that this patient requires 2 or more midnights of care for the following reason:: not improving outpt - . Bed Request Type: Regular Admitting Physician: Godwin Hall Jr. Patient Diagnosis: Cellulitis
[2019-01-18] MEDS ORDERED: Vancomycin 1 GM 1 GM/250 ML BAG IVPB ONE ×2 (11:21→11:30)
--- NOTE | 2019-01-18 13:00 | CP.PCM.HP ---
History of Present Illness - History of Present Illness History of Present Illness: Medicine Note for Dr. 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 Patient is pleasantly demented. Reports he arrived via taxi. His son is unaware of his admission to the hospital. Patient reports this has been happening for a while. Admits to left leg pain, itchiness, and irritation. Denied any associated fever, chills, chest pain, shortness of breath, abdominal pain, n/v/d/c, or urinary symptoms. Son was called, messaged left on voicemail. PMHx: As noted above PSHx: PCI placement Meds: As per DEC All: NKDA SHx: Social ETOH use, denied tobacco or any illicit drug use. Lives with his Son FHx: Unremarkable Son's name is Shannan Paulson, contact [phone], PMD: Ruslan Present on Admission - Present on Admission Any Indicators Present on Admission: No Past Patient History - Past Medical History & Family History Past Medical History?: Yes - Past Social History Smoking Status: Never Smoked - CARDIAC Hx Atrial Fibrillation: Yes Hx Hypercholesterolemia: Yes Hx Hypertension: Yes - PULMONARY Hx Respiratory Disorders: No - NEUROLOGICAL Hx Dementia: Yes - HEENT Hx HEENT Problems: No - RENAL Hx Chronic Kidney Disease: No - ENDOCRINE/METABOLIC Hx Endocrine Disorders: No - HEMATOLOGICAL/ONCOLOGICAL Hx Blood Disorders: No - INTEGUMENTARY Hx Dermatological Problems: Yes (SEE COMMENT) Other/Comment: LLE ULCER - MUSCULOSKELETAL/RHEUMATOLOGICAL Hx Musculoskeletal Disorders: No Hx Falls: No - GASTROINTESTINAL Hx Gastrointestinal Disorders: No - GENITOURINARY/GYNECOLOGICAL Hx Genitourinary Disorders: No - PSYCHIATRIC Hx Substance Use: No - SURGICAL HISTORY Hx Surgeries: Yes Hx Herniorrhaphy: Yes Other/Comment: heart surgery- with stents 4 years ago - ANESTHESIA Hx Anesthesia: Yes Hx Anesthesia Reactions: No Hx Malignant Hyperthermia: No Meds Allergies/Adverse Reactions: Allergies Allergy/AdvReac Type Severity Reaction Status Date / Time No Known Allergies Allergy Verified 01/18/19 09:20 Physical Exam - Constitutional Appears: Well, Non-toxic, No Acute Distress - Head Exam Head Exam: ATRAUMATIC, NORMAL INSPECTION, NORMOCEPHALIC - Eye Exam Eye Exam: EOMI, Normal appearance, PERRL - ENT Exam ENT Exam: Mucous Membranes Moist - Respiratory Exam Respiratory Exam: Clear to Auscultation Bilateral, NORMAL BREATHING PATTERN. absent: Decreased Breath Sounds, Rales, Rhonchi, Wheezes - GI/Abdominal Exam GI & Abdominal Exam: Normal Bowel Sounds, Soft. absent: Distended, Tenderness - Extremities Exam Additional comments: Chronic venous stasis noted L> R Left anterior tibial ulcer noted, some drainage, non-malodorous, skin is extremely dry and scaly Long toenails onychomycosis? - Neurological Exam Neurological exam: Alert - Psychiatric Exam Psychiatric exam: Normal Affect, Normal Mood - Skin Skin Exam: Dry, Intact, Normal Color, Warm Results - Vital Signs Recent Vital Signs: Last Vital Signs Temp 97.5 F L 01/18/19 12:25 Pulse 64 01/18/19 12:25 Resp 20 01/18/19 12:25 BP 160/66 H 01/18/19 12:25 Pulse Ox 98 01/18/19 12:25 - Labs Result Diagrams: 01/18/19 10:46 01/18/19 10:46 Labs: Laboratory Results - last 24 hr 01/18/19 01/18/19 01/18/19 10:46 10:46 10:46 WBC 4.9 RBC 4.24 L Hgb 11.3 L Hct 34.5 L MCV 81.5 MCH 26.6 L MCHC 32.6 L RDW 15.7 H Plt Count 270 MPV 7.9 Neut % (Auto) 54.7 Lymph % (Auto) 27.2 [place] % (Auto) 10.6 H Eos % (Auto) 6.4 H Baso % (Auto) 1.1 Neut # (Auto) 2.7 Lymph # (Auto) 1.3 [place] # (Auto) 0.5 Eos # (Auto) 0.3 Baso # (Auto) 0.1 PT 12.5 H INR 1.1 APTT 35 H Sodium Potassium Chloride Carbon Dioxide Anion Gap BUN Creatinine Est GFR ( Amer) Est GFR (Non-Af Amer) Random Glucose Calcium Total Bilirubin AST ALT Alkaline Phosphatase Total Protein Albumin Globulin Albumin/Globulin Ratio Urine Color Yellow Urine Clarity Hazy Urine pH 5.0 Ur Specific [place] 1.023 Urine Protein Negative Urine Glucose (UA) Normal Urine Ketones Negative Urine Blood 2+ H Urine Nitrate Negative Urine Bilirubin Negative Urine Urobilinogen Normal Ur Leukocyte Esterase Neg Urine WBC (Auto) 1 Urine RBC (Auto) 11 H Ur Squamous Epith Cells < 1 Hyaline Casts 3-5 H 01/18/19 10:46 WBC RBC Hgb Hct MCV MCH MCHC RDW Plt Count MPV Neut % (Auto) Lymph % (Auto) [place] % (Auto) Eos % (Auto) Baso % (Auto) Neut # (Auto) Lymph # (Auto) [place] # (Auto) Eos # (Auto) Baso # (Auto) PT INR APTT Sodium 141 Potassium 4.0 Chloride 103 Carbon Dioxide 30 Anion Gap 11 BUN 27 H Creatinine 1.0 Est GFR ( Amer) > 60 Est GFR (Non-Af Amer) > 60 Random Glucose 87 Calcium 9.2 Total Bilirubin 0.5 AST 23 ALT < 6 L D Alkaline Phosphatase 69 Total Protein 7.5 Albumin 4.0 Globulin 3.6 Albumin/Globulin Ratio 1.1 Urine Color Urine Clarity Urine pH Ur Specific [place] Urine Protein Urine Glucose (UA) Urine Ketones Urine Blood Urine Nitrate Urine Bilirubin Urine Urobilinogen Ur Leukocyte Esterase Urine WBC (Auto) Urine RBC (Auto) Ur Squamous Epith Cells Hyaline Casts Assessment & Plan - Assessment and Plan (Free Text) Plan: LLE Tibial Ulcer with Cellulitis Hx Chronic Venous Stasis -- Wound Care Nurse * Recommended Jason martinez-Hydrin BID, and KARI bandage Imaging: - Venous Doppler - negative for DVT Management: - Multiple admissions for similar issue - Vancomycin 1 gram daily, Zosyn Q6H, f/u vanco trough 01/21/19 - F/U wound and blood cultures Hypertension - Resume Aspirin 81 mg PO daily, Lisinopril 40 mg PO daily, HCTZ 12.5mg PO daily, Metoprolol tartrate 25 mg PO daily Hyperlipidemia - Resume Crestor 5mg PO QHS CAD with 4 stents - Resume Aspirin 81 mg PO daily, Lisinopril 40 mg PO daily, HCTZ 12.5mg PO daily, Metoprolol tartrate 25 mg PO daily, Crestor 5mg PO QHS Anemia - Iron studies ordered Dementia Prophylactic Measures - GI PPX: Protonix, Florastor BID - DVT PPX: Lovenox - Son's name is Shannan Espana, contact [phone] - pt Eval - AVASIS due to dementia patient is elopement risk DW Dr. Mercer, Anamika Alvarez DO, PGY2
[2019-01-18] MEDS: Ammonium Lactate 12% Lotion (225 g) EXT SCH (14:43)
[2019-01-18] MEDS: Piperacill/Tazo 3.375gm in Dex 3.375 GM/50 ML BAG IVPB SCH ×2 (17:55→22:06)
[2019-01-18] MEDS: Saccharomyces Boulardi 250 mg Cap PO SCH (18:15)
[2019-01-19] MEDS: Piperacill/Tazo 3.375gm in Dex 3.375 GM/50 ML BAG IVPB SCH ×4 (05:41→23:08)
[2019-01-19 07:28] LABS: BASO % 0.9 % (0.0-2.0); EOS # 0.4 K/uL (0.0-0.7); EOS % 11.2 % (0.0-4.0); HEMOGLOBIN 9.9 g/dL (12.0-18.0); LYMPH # 1.1 K/uL (1.0-4.3); MEAN CELL VOLUME 80.7 fL (80.0-94.0); MEAN CORPUSCULAR HEMOGLOBIN 26.6 pg (27.0-31.0); MEAN CORPUSCULAR HGB CONC 32.9 g/dL (33.0-37.0); MEAN PLATELET VOLUME 7.5 fL (7.2-11.7); MONO # 0.5 K/uL (0.0-0.8); MONO % 12.7 % (0.0-10.0); NEUT # 1.9 K/uL (1.8-7.0); NEUT % 48.2 % (50.0-75.0); NRBC % 0.1 % (0.0-2.0); RBC 3.71 Mil/uL (4.40-5.90); RED CELL DISTRIBUTION WIDTH 15.4 % (11.5-14.5)
[2019-01-19 07:47] LABS: ALBUMIN 3.1 g/dL (3.5-5.0); ALT/SGPT 7 U/L (21-72); AST/SGOT 14 U/L (17-59); BLOOD UREA NITROGEN 20 mg/dL (9-20); CALCIUM 8.7 mg/dl (8.6-10.4); GFR NON-AFRICAN AMERICAN > 60
[2019-01-19 08:17] LABS: FERRITIN 37.9 ng/mL
[2019-01-19 08:55] LABS: IRON 31 ug/dL (49-181)
[2019-01-19 09:04] LABS: % IRON SATURATION 12 (20-55); TOTAL IRON BINDING CAPACITY 260 ug/dL (250-450)
[2019-01-19] MEDS: Enoxaparin 40 mg Syringe SC SCH (10:58)
[2019-01-19] MEDS: Saccharomyces Boulardi 250 mg Cap PO SCH ×2 (10:58→17:26)
[2019-01-19] MEDS: Pantoprazole 40 mg EC Tab PO SCH (10:58)
[2019-01-19] MEDS: Ammonium Lactate 12% Lotion (225 g) EXT SCH (10:59)
[2019-01-19] MEDS: Vancomycin 1 gm/NS 200 ml 1 GM/200 ML BAG IVPB SCH (11:01)
[2019-01-19] MEDS: Metoprolol Succinate 25 mg XL Tab PO SCH (11:01)
--- NOTE | 2019-01-19 13:06 | CP.PCM.PN ---
Subjective - Date & Time of Evaluation Date of Evaluation: 01/19/19 Time of Evaluation: 13:05 - Subjective Subjective: Medicine Progress Note - Dr Mercer's service Patient seen and examined at bedside. Per nursing no acute events overnight. Patient is doing well, still confused. Offers no complaints at this time. Objective - Vital Signs/Intake and Output Vital Signs (last 24 hours): Temp Pulse Resp BP Pulse Ox 97.9 F 66 20 161/78 H 98 01/19/19 07:53 01/19/19 07:53 01/19/19 07:53 01/19/19 07:53 01/19/19 07:53 Intake and Output: 01/19/19 01/19/19 06:59 18:59 Output Total 200 Balance -200 - Medications Medications: Current Medications Acetaminophen (Tylenol 325mg Tab) 650 mg PO Q6 PRN PRN Reason: Pain, Mild (1-3) Aspirin (Ecotrin) 81 mg PO DAILY [facility] Last Admin: 01/19/19 10:58 Dose: 81 mg Enoxaparin Sodium (Lovenox) 40 mg SC DAILY [facility] Last Admin: 01/19/19 10:58 Dose: 40 mg Hydrochlorothiazide (Microzide) 12.5 mg PO DAILY [facility] Last Admin: 01/19/19 10:58 Dose: 12.5 mg Piperacillin Sod/Tazobactam Sod (Zosyn 3.375 Gm Iv Premix) 3.375 gm in 50 mls @ 100 mls/hr IVPB Q6H [facility]; Protocol Last Admin: 01/19/19 12:18 Dose: 100 mls/hr Vancomycin/Sodium Chloride (Vancomycin 1 Gm/Ns 200 Ml) 1 gm in 200 mls @ 133.333 mls/hr IVPB DAILY [facility]; Protocol Stop: 01/24/19 10:01 Last Admin: 01/19/19 11:01 Dose: 133.333 mls/hr Lactic Acid (Lac-Hydrin 12% Lotion (225 G)) 0 gm EXT DAILY [facility] Last Admin: 01/19/19 10:59 Dose: 1 appl Lisinopril (Zestril) 40 mg PO DAILY [facility] Last Admin: 01/19/19 10:58 Dose: 40 mg Metoprolol Succinate (Toprol Xl) 25 mg PO DAILY [facility] Last Admin: 01/19/19 11:01 Dose: 25 mg Pantoprazole Sodium (Protonix Ec Tab) 40 mg PO DAILY [facility] Last Admin: 01/19/19 10:58 Dose: 40 mg Risperidone (Risperdal Tab) 1 mg PO DAILY [facility] Last Admin: 01/19/19 10:58 Dose: 1 mg Rosuvastatin Calcium (Crestor) 5 mg PO HS [facility] Last Admin: 01/18/19 22:06 Dose: 5 mg Saccharomyces Boulardii (Florastor) 250 mg PO BID [facility] Last Admin: 01/19/19 10:58 Dose: 250 mg - Labs Labs: 01/19/19 07:16 01/19/19 07:16 PT 12.5 SECONDS (9.7-12.2) H 01/18/19 10:46 INR 1.1 01/18/19 10:46 APTT 35 SECONDS (21-34) H 01/18/19 10:46 - Additional Findings Additional findings: - Constitutional Appears: Well, Non-toxic, No Acute Distress - Head Exam Head Exam: ATRAUMATIC, NORMAL INSPECTION, NORMOCEPHALIC - Eye Exam Eye Exam: EOMI, Normal appearance, PERRL - ENT Exam ENT Exam: Mucous Membranes Moist - Respiratory Exam Respiratory Exam: Clear to Auscultation Bilateral, NORMAL BREATHING PATTERN. absent: Decreased Breath Sounds, Rales, Rhonchi, Wheezes - GI/Abdominal Exam GI & Abdominal Exam: Normal Bowel Sounds, Soft. absent: Distended, Tenderness - Extremities Exam Additional comments: Chronic venous stasis noted L> R Left anterior tibial ulcer noted, some drainage, non-malodorous, skin is extremely dry and scaly - Neurological Exam Neurological exam: Alert - Psychiatric Exam Psychiatric exam: Normal Affect, Normal Mood - Skin Skin Exam: Dry, Intact, Normal Color, Warm Assessment and Plan - Assessment and Plan (Free Text) Assessment: LLE Tibial Ulcer, Hx Chronic Venous Stasis Dermatitis -Stable, afebrile Venous Doppler - negative for DVT -Antibiotics: Vancomycin 1 gram daily, Zosyn Q6H IVPB -Wound cultures growing staph aureus and gram negative rods -Podiatry on consult, help appreciated Hypertension -Continue Aspirin 81 mg PO daily, Lisinopril 40 mg PO daily, -Continue HCTZ 12.5mg PO daily, Metoprolol tartrate 25 mg PO daily Hyperlipidemia -Continue Crestor 5mg PO QHS History of CAD with 4 stents -Resume Aspirin 81 mg PO daily, Lisinopril 40 mg PO daily, HCTZ 12.5mg PO daily, -Metoprolol tartrate 25 mg PO daily, Crestor 5mg PO QHS Anemia -Iron 31, TIBC 260, %saturation 12 -Patient will need outpatient GI workup Abnormal UA -UA on admission showing +2 blood and RBCs -Will repeat Dementia -Stable GI/DVT Prophylactic Measures - GI PPX: Protonix, Florastor BID - DVT PPX: Lovenox Son's name is Shannan Espana, contact [phone] Ruslan Theodore DO PGY-2
[2019-01-19 22:10] LABS: URINE BILIRUBIN NEGATIVE (NEGATIVE); URINE BLOOD 1+ (NEGATIVE); URINE CLARITY Clear (Clear); URINE COLOR Straw (YELLOW); URINE GLUCOSE (UA) NORMAL (Normal); URINE LEUKOCYTE ESTERASE NEG Leu/uL (Negative); URINE PROTEIN NEGATIVE (NEGATIVE); URINE UROBILINOGEN NORMAL mg/dL (0.2-1.0)
[2019-01-20] MEDS: Piperacill/Tazo 3.375gm in Dex 3.375 GM/50 ML BAG IVPB SCH ×4 (04:40→22:05)
[2019-01-20 07:35] LABS: BASO % 0.8 % (0.0-2.0); EOS # 0.5 K/uL (0.0-0.7); EOS % 13.9 % (0.0-4.0); HEMOGLOBIN 10.4 g/dL (12.0-18.0); LYMPH # 0.8 K/uL (1.0-4.3); LYMPH % 22.5 % (20.0-40.0); MEAN CELL VOLUME 80.4 fL (80.0-94.0); MEAN CORPUSCULAR HEMOGLOBIN 26.5 pg (27.0-31.0); MEAN CORPUSCULAR HGB CONC 32.9 g/dL (33.0-37.0); MEAN PLATELET VOLUME 7.5 fL (7.2-11.7); MONO # 0.4 K/uL (0.0-0.8); NEUT # 1.9 K/uL (1.8-7.0); NEUT % 51.8 % (50.0-75.0); RBC 3.92 Mil/uL (4.40-5.90); RED CELL DISTRIBUTION WIDTH 15.8 % (11.5-14.5); WHITE BLOOD COUNT 3.6 K/uL (4.8-10.8)
[2019-01-20 08:04] LABS: ALBUMIN 3.3 g/dL (3.5-5.0); ALT/SGPT < 6 U/L (21-72); AST/SGOT 22 U/L (17-59); BLOOD UREA NITROGEN 17 mg/dL (9-20); GFR NON-AFRICAN AMERICAN > 60
[2019-01-20] MEDS: Enoxaparin 40 mg Syringe SC SCH (10:24)
[2019-01-20] MEDS: Silver Sulfadiazine 1% Cream (20 gm) TOP SCH (10:24)
[2019-01-20] MEDS: Saccharomyces Boulardi 250 mg Cap PO SCH ×2 (10:26→17:47)
[2019-01-20] MEDS: Pantoprazole 40 mg EC Tab PO SCH (10:26)
[2019-01-20] MEDS: Metoprolol Succinate 25 mg XL Tab PO SCH (10:26)
[2019-01-20] MEDS: Vancomycin 1 gm/NS 200 ml 1 GM/200 ML BAG IVPB SCH (10:26)
[2019-01-20] MEDS: Ammonium Lactate 12% Lotion (225 g) EXT SCH (10:27)
--- NOTE | 2019-01-20 17:19 | CP.PCM.PN ---
Subjective - Date & Time of Evaluation Date of Evaluation: 01/20/19 Time of Evaluation: 17:17 - Subjective Subjective: Medicine Progress Note - Dr Mercer's service Patient seen and examined at bedside. Per nursing patient was confused and agitated last night, requiring ativan. Currently he is awake and pleasant. He offers no complaints at this time. Denies headaches, dizziness, cp, palpitations, sob, abdominal pain, urinary symptoms. Objective - Vital Signs/Intake and Output Vital Signs (last 24 hours): Temp Pulse Resp BP Pulse Ox 97.5 F L 62 20 148/61 95 01/20/19 15:00 01/20/19 15:00 01/20/19 15:00 01/20/19 15:00 01/20/19 15:00 Intake and Output: 01/20/19 01/20/19 06:59 18:59 Intake Total 950 Balance 950 - Medications Medications: Current Medications Acetaminophen (Tylenol 325mg Tab) 650 mg PO Q6 PRN PRN Reason: Pain, Mild (1-3) Aspirin (Ecotrin) 81 mg PO DAILY [facility] Last Admin: 01/20/19 10:26 Dose: 81 mg Enoxaparin Sodium (Lovenox) 40 mg SC DAILY [facility] Last Admin: 01/20/19 10:24 Dose: 40 mg Hydrochlorothiazide (Microzide) 12.5 mg PO DAILY [facility] Last Admin: 01/20/19 10:25 Dose: 12.5 mg Piperacillin Sod/Tazobactam Sod (Zosyn 3.375 Gm Iv Premix) 3.375 gm in 50 mls @ 100 mls/hr IVPB Q6H [facility]; Protocol Last Admin: 01/20/19 10:26 Dose: 100 mls/hr Vancomycin/Sodium Chloride (Vancomycin 1 Gm/Ns 200 Ml) 1 gm in 200 mls @ 133.333 mls/hr IVPB DAILY [facility]; Protocol Stop: 01/24/19 10:01 Last Admin: 01/20/19 10:26 Dose: 133.333 mls/hr Lactic Acid (Lac-Hydrin 12% Lotion (225 G)) 0 gm EXT DAILY [facility] Last Admin: 01/20/19 10:27 Dose: 1 appl Lisinopril (Zestril) 40 mg PO DAILY [facility] Last Admin: 01/20/19 10:26 Dose: 40 mg Metoprolol Succinate (Toprol Xl) 25 mg PO DAILY [facility] Last Admin: 01/20/19 10:26 Dose: 25 mg Pantoprazole Sodium (Protonix Ec Tab) 40 mg PO DAILY [facility] Last Admin: 01/20/19 10:26 Dose: 40 mg Risperidone (Risperdal Tab) 1 mg PO DAILY [facility] Last Admin: 01/20/19 10:26 Dose: 1 mg Rosuvastatin Calcium (Crestor) 5 mg PO HS [facility] Last Admin: 01/19/19 22:59 Dose: Not Given Saccharomyces Boulardii (Florastor) 250 mg PO BID [facility] Last Admin: 01/20/19 10:26 Dose: 250 mg Silver Sulfadiazine (Silvadene 1% 20 Gm) 0 ea TOP DAILY [facility] Last Admin: 01/20/19 10:24 Dose: 1 applic - Labs Labs: 01/20/19 07:22 01/20/19 07:22 PT 12.5 SECONDS (9.7-12.2) H 01/18/19 10:46 INR 1.1 01/18/19 10:46 APTT 35 SECONDS (21-34) H 01/18/19 10:46 - Additional Findings Additional findings: - Constitutional Appears: Well, Non-toxic, No Acute Distress - Head Exam Head Exam: ATRAUMATIC, NORMAL INSPECTION, NORMOCEPHALIC - Eye Exam Eye Exam: EOMI, Normal appearance, PERRL - ENT Exam ENT Exam: Mucous Membranes Moist - Respiratory Exam Respiratory Exam: Clear to Auscultation Bilateral, NORMAL BREATHING PATTERN. absent: Decreased Breath Sounds, Rales, Rhonchi, Wheezes - GI/Abdominal Exam GI & Abdominal Exam: Normal Bowel Sounds, Soft. absent: Distended, Tenderness - Extremities Exam Additional comments: Chronic venous stasis noted L> R Left anterior tibial ulcer noted, some drainage, non-malodorous, skin is extremely dry and scaly - Neurological Exam Neurological exam: Alert - Psychiatric Exam Psychiatric exam: Normal Affect, Normal Mood - Skin Skin Exam: Dry, Intact, Normal Color, Warm Assessment and Plan - Assessment and Plan (Free Text) Assessment: LLE Tibial Ulcer, Hx Chronic Venous Stasis Dermatitis -Stable, afebrile Venous Doppler - negative for DVT -Antibiotics: Vancomycin 1 gram daily, Zosyn Q6H IVPB -Wound cultures growing staph aureus and raoultella ornithinolytica -Wound care per Dr Ruslan Shipman to be applied from the knee down -Podiatry on consult, help appreciated Hypertension -Continue Aspirin 81 mg PO daily, Lisinopril 40 mg PO daily, -Continue HCTZ 12.5mg PO daily, Metoprolol tartrate 25 mg PO daily Hyperlipidemia -Continue Crestor 5mg PO QHS History of CAD with 4 stents -Resume Aspirin 81 mg PO daily, Lisinopril 40 mg PO daily, HCTZ 12.5mg PO daily, -Metoprolol tartrate 25 mg PO daily, Crestor 5mg PO QHS Anemia -Iron 31, TIBC 260, %saturation 12 -Patient will need outpatient GI workup Abnormal UA -UA on admission showing +2 blood and RBCs -Microscopic hematuria -Urine cytology ordered Dementia -Stable GI/DVT Prophylactic Measures - GI PPX: Protonix, Florastor BID - DVT PPX: Lovenox Son's name is Shannan Espana, contact [phone] Ruslan Theodore DO PGY-2
[2019-01-20 19:08] LABS: RAPID PLASMA REAGIN REACTIVE (NONREACTIVE)
[2019-01-21] MEDS: Piperacill/Tazo 3.375gm in Dex 3.375 GM/50 ML BAG IVPB SCH ×3 (04:48→22:16)
[2019-01-21 08:05] LABS: BASO % 0.8 % (0.0-2.0); EOS # 0.3 K/uL (0.0-0.7); HEMOGLOBIN 11.1 g/dL (12.0-18.0); LYMPH % 17.3 % (20.0-40.0); MEAN CELL VOLUME 81.3 fL (80.0-94.0); MEAN CORPUSCULAR HEMOGLOBIN 26.1 pg (27.0-31.0); MEAN CORPUSCULAR HGB CONC 32.1 g/dL (33.0-37.0); MEAN PLATELET VOLUME 7.7 fL (7.2-11.7); MONO # 0.6 K/uL (0.0-0.8); MONO % 11.1 % (0.0-10.0); NEUT # 3.7 K/uL (1.8-7.0); NEUT % 64.8 % (50.0-75.0); RBC 4.25 Mil/uL (4.40-5.90); RED CELL DISTRIBUTION WIDTH 15.5 % (11.5-14.5)
[2019-01-21 08:07] LABS: WHITE BLOOD COUNT 5.7 K/uL (4.8-10.8)
[2019-01-21 08:19] LABS: ALB/GLOB RATIO 1.1 (1.0-2.1); ALBUMIN 3.8 g/dL (3.5-5.0); ALT/SGPT < 6 U/L (21-72); AST/SGOT 42 U/L (17-59); BLOOD UREA NITROGEN 16 mg/dL (9-20); CALCIUM 9.3 mg/dl (8.6-10.4); GFR NON-AFRICAN AMERICAN 57
[2019-01-21] MEDS: Metoprolol Succinate 25 mg XL Tab PO SCH (09:47)
[2019-01-21] MEDS: Saccharomyces Boulardi 250 mg Cap PO SCH ×2 (09:47→17:32)
[2019-01-21] MEDS: Pantoprazole 40 mg EC Tab PO SCH (09:48)
[2019-01-21] MEDS: Enoxaparin 40 mg Syringe SC SCH (09:48)
[2019-01-21] MEDS: Silver Sulfadiazine 1% Cream (20 gm) TOP SCH (09:48)
[2019-01-21] MEDS: Vancomycin 1 gm/NS 200 ml 1 GM/200 ML BAG IVPB SCH (09:48)
[2019-01-21] MEDS: Ammonium Lactate 12% Lotion (225 g) EXT SCH (09:50)
--- NOTE | 2019-01-21 14:03 | VASCLAB ---
Date of service: 01/18/2019 PROCEDURE: Left Lower Extremity Venous Duplex Exam. HISTORY: leg swelling PRIORS: None. TECHNIQUE: Left common femoral, femoral, popliteal and posterior tibial, peroneal and great saphenous veins were evaluated. Flow was assessed with color Doppler, compressibility, assessment of phasic flow and augmentation response. Report prepared by CÉSAR Nava, RVT FINDINGS: LEFT: 1. Common Femoral Vein: 1.1. Compressibility - Fully compressible: Thrombus - None : Flow - Phasic: Augmentation -Normal: Reflux - None. 2. Femoral Vein: 2.1. Compressibility - Fully compressible: Thrombus - None: Flow - Phasic: Augmentation -Normal: Reflux - None. 3. Popliteal Vein: 3.1. Compressibility - Fully compressible: Thrombus - None: Flow - Phasic: Augmentation -Normal: Reflux - Yes. 4. Posterior Tibial Vein: 4.1. Compressibility - Fully compressible: Thrombus - None: Flow - Phasic: Augmentation -Normal: Reflux - Yes. 5. Peroneal Vein: 5.1. Compressibility - Fully compressible: Thrombus - None: Flow - Phasic: Augmentation -Normal: Reflux - None. 6. Great Saphenous Vein: 6.1. Compressibility - Fully compressible: Thrombus - None: Flow - Phasic: Augmentation - Normal: Reflux - None. OTHER FINDINGS: IMPRESSION: No evidence of deep or superficial vein thrombosis of the left lower extremity with excellent venous flow. Valvular incompetence of the left popliteal and posterior tibial veins. Normal venous flow noted in the right common femoral vein.
--- NOTE | 2019-01-21 15:47 | CP.PCM.PN ---
Subjective - Date & Time of Evaluation Date of Evaluation: 01/21/19 Time of Evaluation: 09:00 - Subjective Subjective: Medicine Progress Note for Dr. Mercer's service S/E at bedside. Very groggy during interview limiting ROS. Objective - Vital Signs/Intake and Output Vital Signs (last 24 hours): Temp Pulse Resp BP Pulse Ox 97.2 F L 76 20 111/69 97 01/21/19 10:25 01/21/19 10:25 01/21/19 10:25 01/21/19 10:25 01/21/19 10:25 Intake and Output: 01/21/19 01/21/19 06:59 18:59 Intake Total 750 Balance 750 - Medications Medications: Current Medications Acetaminophen (Tylenol 325mg Tab) 650 mg PO Q6 PRN PRN Reason: Pain, Mild (1-3) Aspirin (Ecotrin) 81 mg PO DAILY [facility] Last Admin: 01/21/19 09:47 Dose: 81 mg Enoxaparin Sodium (Lovenox) 40 mg SC DAILY [facility] Last Admin: 01/21/19 09:48 Dose: 40 mg Hydrochlorothiazide (Microzide) 12.5 mg PO DAILY [facility] Last Admin: 01/21/19 09:47 Dose: 12.5 mg Piperacillin Sod/Tazobactam Sod (Zosyn 3.375 Gm Iv Premix) 3.375 gm in 50 mls @ 100 mls/hr IVPB Q6H [facility]; Protocol Last Admin: 01/21/19 04:48 Dose: 100 mls/hr Vancomycin/Sodium Chloride (Vancomycin 1 Gm/Ns 200 Ml) 1 gm in 200 mls @ 133.333 mls/hr IVPB DAILY [facility]; Protocol Stop: 01/24/19 10:01 Last Admin: 01/21/19 09:48 Dose: 133.333 mls/hr Lactic Acid (Lac-Hydrin 12% Lotion (225 G)) 0 gm EXT DAILY [facility] Last Admin: 01/21/19 09:50 Dose: 1 appl Lisinopril (Zestril) 40 mg PO DAILY [facility] Last Admin: 01/21/19 09:47 Dose: 40 mg Metoprolol Succinate (Toprol Xl) 25 mg PO DAILY [facility] Last Admin: 01/21/19 09:47 Dose: 25 mg Pantoprazole Sodium (Protonix Ec Tab) 40 mg PO DAILY [facility] Last Admin: 01/21/19 09:48 Dose: 40 mg Risperidone (Risperdal Tab) 1 mg PO DAILY [facility] Last Admin: 01/21/19 09:48 Dose: 1 mg Rosuvastatin Calcium (Crestor) 5 mg PO HS [facility] Last Admin: 01/20/19 22:05 Dose: 5 mg Saccharomyces Boulardii (Florastor) 250 mg PO BID [facility] Last Admin: 01/21/19 09:47 Dose: 250 mg Silver Sulfadiazine (Silvadene 1% 20 Gm) 0 ea TOP DAILY [facility] Last Admin: 01/21/19 09:48 Dose: 1 applic - Labs Labs: 01/21/19 07:49 01/21/19 07:49 PT 12.5 SECONDS (9.7-12.2) H 01/18/19 10:46 INR 1.1 01/18/19 10:46 APTT 35 SECONDS (21-34) H 01/18/19 10:46 - Additional Findings Additional findings: - Constitutional Appears: Well, Non-toxic, No Acute Distress - Head Exam Head Exam: ATRAUMATIC, NORMAL INSPECTION, NORMOCEPHALIC - Eye Exam Eye Exam: EOMI, Normal appearance, PERRL - ENT Exam ENT Exam: Mucous Membranes Moist - Respiratory Exam Respiratory Exam: Clear to Auscultation Bilateral, NORMAL BREATHING PATTERN. absent: Decreased Breath Sounds, Rales, Rhonchi, Wheezes - GI/Abdominal Exam GI & Abdominal Exam: Normal Bowel Sounds, Soft. absent: Distended, Tenderness - Extremities Exam Additional comments: Chronic venous stasis noted L> R Left anterior tibial ulcer noted, some drainage, non-malodorous, skin is e xtremely dry and scaly - Neurological Exam Neurological exam: Alert - Psychiatric Exam Psychiatric exam: Normal Affect, Normal Mood - Skin Skin Exam: Dry, Intact, Normal Color, Warm Assessment and Plan - Assessment and Plan (Free Text) Assessment: 8 year old with PMHx of Hypertension, Hyperlipidemia, CAD with 4 stents, Anemia, Chronic Venous Stasis with Chronic Tibial Ulcer and Dementia who presents to the ED with left lower leg pain and drainage from leg wound. Plan: Chronic Venous Stasis Dermatitis Venous Doppler - negative for DVT Antibiotics: Vancomycin 1 gram daily, Zosyn Q6H IVPB Wound cultures growing staph aureus and raoultella ornithinolytica; likely skin contaminated Wound care per Dr Ruslan Shpiman to be applied from the knee down Podiatry on consult, help appreciated Hypertension Aspirin 81 mg PO daily Lisinopril 40 mg PO daily, HCTZ 12.5mg PO daily Metoprolol tartrate 25 mg PO daily Hyperlipidemia Continue Crestor 5mg PO QHS History of CAD with 4 stents Resume Aspirin 81 mg PO daily Lisinopril 40 mg PO daily HCTZ 12.5mg PO daily, Metoprolol tartrate 25 mg PO daily Crestor 5mg PO QHS Anemia Iron 31, TIBC 260, %saturation 12 Patient will need outpatient GI workup Microscopic hematuria UA on admission showing +2 blood and RBCs Urine cytology pending Hgb stable Dementia RPR positive FTA-Abs pending possible baseline but r.o syphilis GI/DVT Prophylactic Measures GI PPX: Protonix, Florastor BID DVT PPX: Lovenox Son's name is Shannan Espana, contact [phone] Ruslan Morejon DO PGY-1
--- NOTE | 2019-01-21 22:48 | CP.PCM.CON ---
History of Present Illness - History of Present Illness History of Present Illness: Podiatry Consult Note- Dr Robert 88M with PMHx of dementia seen and evaluated at bedside after podiatry consult for onychomyotic nails. Patient is seen in chair out of bed, in NAD. Patient reports bothersome nails. Denies nausea, fever, shortness of breath chest pains or chills. Past Patient History - Past Medical History & Family History Past Medical History?: Yes - Past Social History Smoking Status: Never Smoked - CARDIAC Hx Cardiac Disorders: Yes (4 STENTS) Hx Hypercholesterolemia: Yes Hx Hypertension: Yes - PULMONARY Hx Respiratory Disorders: No - NEUROLOGICAL Hx Dementia: Yes - HEENT Hx HEENT Problems: No - RENAL Hx Chronic Kidney Disease: No - ENDOCRINE/METABOLIC Hx Endocrine Disorders: No - HEMATOLOGICAL/ONCOLOGICAL Hx Blood Disorders: No - INTEGUMENTARY Hx Dermatological Problems: Yes (SEE COMMENT) Other/Comment: LLE ULCER - MUSCULOSKELETAL/RHEUMATOLOGICAL Hx Musculoskeletal Disorders: No Hx Falls: No - GASTROINTESTINAL Hx Gastrointestinal Disorders: No - GENITOURINARY/GYNECOLOGICAL Hx Genitourinary Disorders: No - PSYCHIATRIC Hx Substance Use: No - SURGICAL HISTORY Hx Surgeries: Yes Hx Herniorrhaphy: Yes Other/Comment: heart surgery- with stents 4 years ago - ANESTHESIA Hx Anesthesia: Yes Hx Anesthesia Reactions: No Hx Malignant Hyperthermia: No Meds Allergies/Adverse Reactions: Allergies Allergy/AdvReac Type Severity Reaction Status Date / Time No Known Allergies Allergy Verified 01/18/19 09:20 - Medications Medications: Current Medications Acetaminophen (Tylenol 325mg Tab) 650 mg PO Q6 PRN PRN Reason: Pain, Mild (1-3) Aspirin (Ecotrin) 81 mg PO DAILY [facility] Last Admin: 01/21/19 09:47 Dose: 81 mg Enoxaparin Sodium (Lovenox) 40 mg SC DAILY [facility] Last Admin: 01/21/19 09:48 Dose: 40 mg Hydrochlorothiazide (Microzide) 12.5 mg PO DAILY [facility] Last Admin: 01/21/19 09:47 Dose: 12.5 mg Piperacillin Sod/Tazobactam Sod (Zosyn 3.375 Gm Iv Premix) 3.375 gm in 50 mls @ 100 mls/hr IVPB Q6H [facility]; Protocol Last Admin: 01/21/19 22:16 Dose: 100 mls/hr Vancomycin/Sodium Chloride (Vancomycin 1 Gm/Ns 200 Ml) 1 gm in 200 mls @ 133.333 mls/hr IVPB DAILY [facility]; Protocol Stop: 01/24/19 10:01 Last Admin: 01/21/19 09:48 Dose: 133.333 mls/hr Lactic Acid (Lac-Hydrin 12% Lotion (225 G)) 0 gm EXT DAILY [facility] Last Admin: 01/21/19 09:50 Dose: 1 appl Lisinopril (Zestril) 40 mg PO DAILY [facility] Last Admin: 01/21/19 09:47 Dose: 40 mg Metoprolol Succinate (Toprol Xl) 25 mg PO DAILY [facility] Last Admin: 01/21/19 09:47 Dose: 25 mg Pantoprazole Sodium (Protonix Ec Tab) 40 mg PO DAILY [facility] Last Admin: 01/21/19 09:48 Dose: 40 mg Risperidone (Risperdal Tab) 1 mg PO DAILY [facility] Last Admin: 01/21/19 09:48 Dose: 1 mg Rosuvastatin Calcium (Crestor) 5 mg PO HS [facility] Last Admin: 01/21/19 22:16 Dose: 5 mg Saccharomyces Boulardii (Florastor) 250 mg PO BID [facility] Last Admin: 01/21/19 17:32 Dose: 250 mg Silver Sulfadiazine (Silvadene 1% 20 Gm) 0 ea TOP DAILY [facility] Last Admin: 01/21/19 09:48 Dose: 1 applic Physical Exam - Constitutional Appears: Well, Non-toxic - Extremities Exam Extremities exam: Negative for: calf tenderness Additional comments: VASC: palpable pulses, temperature gradient WNL ORTHO: bothersome nails with palpation x 10 NEURO: gross and protective sensation slightly diminished DERM: hypertrophic nails with subungal debris, yellow discoloration x 10 Results - Vital Signs Recent Vital Signs: Last Vital Signs Temp 97.7 F 01/21/19 16:00 Pulse 78 01/21/19 16:00 Resp 20 01/21/19 16:00 BP 125/68 01/21/19 16:00 Pulse Ox 99 01/21/19 16:00 - Labs Result Diagrams: 01/23/19 08:26 01/23/19 08:26 Labs: Laboratory Results - last 24 hr 01/21/19 01/21/19 01/21/19 07:16 07:49 07:49 WBC 5.7 D RBC 4.25 L Hgb 11.1 L Hct 34.6 L MCV 81.3 MCH 26.1 L MCHC 32.1 L RDW 15.5 H Plt Count 289 MPV 7.7 Neut % (Auto) 64.8 Lymph % (Auto) 17.3 L [place] % (Auto) 11.1 H Eos % (Auto) 6.0 H Baso % (Auto) 0.8 Neut # (Auto) 3.7 Lymph # (Auto) 1.0 [place] # (Auto) 0.6 Eos # (Auto) 0.3 Baso # (Auto) 0.0 Sodium 138 Potassium 4.0 Chloride 103 Carbon Dioxide 29 Anion Gap 11 BUN 16 Creatinine 1.2 Est GFR ( Amer) > 60 Est GFR (Non-Af Amer) 57 POC Glucose (mg/dL) 85 Random Glucose 90 Calcium 9.3 Phosphorus 4.4 Magnesium 2.1 Total Bilirubin 0.5 AST 42 ALT < 6 L Alkaline Phosphatase 64 Total Protein 7.2 Albumin 3.8 Globulin 3.5 Albumin/Globulin Ratio 1.1 Vancomycin Trough 01/21/19 01/21/19 01/21/19 07:49 11:43 16:23 WBC RBC Hgb Hct MCV MCH MCHC RDW Plt Count MPV Neut % (Auto) Lymph % (Auto) [place] % (Auto) Eos % (Auto) Baso % (Auto) Neut # (Auto) Lymph # (Auto) [place] # (Auto) Eos # (Auto) Baso # (Auto) Sodium Potassium Chloride Carbon Dioxide Anion Gap BUN Creatinine Est GFR ( Amer) Est GFR (Non-Af Amer) POC Glucose (mg/dL) 125 H 159 H Random Glucose Calcium Phosphorus Magnesium Total Bilirubin AST ALT Alkaline Phosphatase Total Protein Albumin Globulin Albumin/Globulin Ratio Vancomycin Trough 8.8 Assessment & Plan - Assessment and Plan (Free Text) Assessment: PMHx of dementia with 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 Robert as needed
[2019-01-22] MEDS: Piperacill/Tazo 3.375gm in Dex 3.375 GM/50 ML BAG IVPB SCH ×4 (04:46→22:03)
[2019-01-22] MEDS: Metoprolol Succinate 25 mg XL Tab PO SCH (10:01)
[2019-01-22] MEDS: Vancomycin 1 gm/NS 200 ml 1 GM/200 ML BAG IVPB SCH (10:01)
[2019-01-22] MEDS: Pantoprazole 40 mg EC Tab PO SCH (10:01)
[2019-01-22] MEDS: Enoxaparin 40 mg Syringe SC SCH (10:01)
[2019-01-22] MEDS: Saccharomyces Boulardi 250 mg Cap PO SCH ×2 (10:01→17:32)
[2019-01-22] MEDS: Silver Sulfadiazine 1% Cream (20 gm) TOP SCH (10:02)
[2019-01-22] MEDS: Ammonium Lactate 12% Lotion (225 g) EXT SCH (10:02)
--- NOTE | 2019-01-22 11:42 | CP.PCM.PN ---
Subjective - Date & Time of Evaluation Date of Evaluation: 01/22/19 Time of Evaluation: 11:34 - Subjective Subjective: Medicine Progress Note for Dr. Mercer's service S/E at bedside. Offers no acute complaints. Denies leg pain. Denies fevers, chills, chest pain, sob, n/v, constipation or diarrhea, and dysuria. Objective - Vital Signs/Intake and Output Vital Signs (last 24 hours): Temp Pulse Resp BP Pulse Ox 97.7 F 79 20 126/67 94 L 01/22/19 07:59 01/22/19 07:59 01/22/19 07:59 01/22/19 07:59 01/22/19 07:59 - Medications Medications: Current Medications Acetaminophen (Tylenol 325mg Tab) 650 mg PO Q6 PRN PRN Reason: Pain, Mild (1-3) Aspirin (Ecotrin) 81 mg PO DAILY [facility] Last Admin: 01/22/19 10:01 Dose: 81 mg Enoxaparin Sodium (Lovenox) 40 mg SC DAILY [facility] Last Admin: 01/22/19 10:01 Dose: 40 mg Hydrochlorothiazide (Microzide) 12.5 mg PO DAILY [facility] Last Admin: 01/22/19 10:01 Dose: 12.5 mg Piperacillin Sod/Tazobactam Sod (Zosyn 3.375 Gm Iv Premix) 3.375 gm in 50 mls @ 100 mls/hr IVPB Q6H [facility]; Protocol Last Admin: 01/22/19 04:46 Dose: 100 mls/hr Vancomycin/Sodium Chloride (Vancomycin 1 Gm/Ns 200 Ml) 1 gm in 200 mls @ 133.333 mls/hr IVPB DAILY [facility]; Protocol Stop: 01/24/19 10:01 Last Admin: 01/22/19 10:01 Dose: 133.333 mls/hr Lactic Acid (Lac-Hydrin 12% Lotion (225 G)) 0 gm EXT DAILY [facility] Last Admin: 01/22/19 10:02 Dose: 1 appl Lisinopril (Zestril) 40 mg PO DAILY [facility] Last Admin: 01/22/19 10:01 Dose: 40 mg Metoprolol Succinate (Toprol Xl) 25 mg PO DAILY [facility] Last Admin: 01/22/19 10:01 Dose: 25 mg Pantoprazole Sodium (Protonix Ec Tab) 40 mg PO DAILY [facility] Last Admin: 01/21/19 09:48 Dose: 40 mg Risperidone (Risperdal Tab) 1 mg PO DAILY [facility] Last Admin: 01/22/19 10:01 Dose: 1 mg Rosuvastatin Calcium (Crestor) 5 mg PO HS [facility] Last Admin: 01/21/19 22:16 Dose: 5 mg Saccharomyces Boulardii (Florastor) 250 mg PO BID [facility] Last Admin: 01/22/19 10:01 Dose: 250 mg Silver Sulfadiazine (Silvadene 1% 20 Gm) 0 ea TOP DAILY [facility] Last Admin: 01/22/19 10:02 Dose: 1 applic - Labs Labs: 01/21/19 07:49 01/21/19 07:49 PT 12.5 SECONDS (9.7-12.2) H 01/18/19 10:46 INR 1.1 01/18/19 10:46 APTT 35 SECONDS (21-34) H 01/18/19 10:46 - Additional Findings Additional findings: - Constitutional Appears: Well, Non-toxic, No Acute Distress - Head Exam Head Exam: ATRAUMATIC, NORMAL INSPECTION, NORMOCEPHALIC - Eye Exam Eye Exam: EOMI, Normal appearance, PERRL - ENT Exam ENT Exam: Mucous Membranes Moist - Respiratory Exam Respiratory Exam: Clear to Auscultation Bilateral, NORMAL BREATHING PATTERN. absent: Decreased Breath Sounds, Rales, Rhonchi, Wheezes - GI/Abdominal Exam GI & Abdominal Exam: Normal Bowel Sounds, Soft. absent: Distended, Tenderness - Extremities Exam Additional comments: Chronic venous stasis noted L> R Left anterior tibial ulcer noted, some drainage, non-malodorous, skin is extremely dry and scaly Left lower extremity dressed in patrick bandage - Neurological Exam Neurological exam: Alert - Psychiatric Exam Psychiatric exam: Normal Affect, Normal Mood - Skin Skin Exam: Dry, Intact, Normal Color, Warm Assessment and Plan - Assessment and Plan (Free Text) Assessment: 88 year old with PMHx of Hypertension, Hyperlipidemia, CAD with 4 stents, Anemia, Chronic Venous Stasis with Chronic Tibial Ulcer and Dementia who presents to the ED with left lower leg pain and drainage from leg wound. Plan: Chronic Venous Stasis Dermatitis Venous Doppler - negative for DVT Antibiotics: Vancomycin 1 gram daily, Zosyn Q6H IVPB; will dc IV abx in AM as patient skin very scaly and breakdown is noticeable Wound cultures growing staph aureus and raoultella ornithinolytica; likely skin contaminated Wound care per Dr Ruslan Shipman to be applied from the knee down Podiatry on consult, help appreciated Hypertension Aspirin 81 mg PO daily Lisinopril 40 mg PO daily, HCTZ 12.5mg PO daily Metoprolol tartrate 25 mg PO daily Hyperlipidemia Continue Crestor 5mg PO QHS History of CAD with 4 stents Aspirin 81 mg PO daily Lisinopril 40 mg PO daily HCTZ 12.5mg PO daily, Metoprolol tartrate 25 mg PO daily Crestor 5mg PO QHS Anemia Iron 31, TIBC 260, %saturation 12 Patient will need outpatient GI workup Microscopic hematuria UA on admission showing +2 blood and RBCs Urine cytology pending Hgb stable Dementia RPR positive FTA-Abs pending Risperidone 1mg po daily possible baseline but r.o syphilis GI/DVT Prophylactic Measures GI PPX: Protonix, Florastor BID DVT PPX: Lovenox Son's name is Shannan Espana, contact [phone] Disposition: Will need [facility] placement, plan for social work eval; pending FTA-abs Plan discussed with Dr Ruslan Morejon DO PGY-1
[2019-01-22 13:52] LABS: HEMOGLOBIN 11.6 g/dL (12.0-18.0); MEAN CELL VOLUME 81.1 fL (80.0-94.0); MEAN CORPUSCULAR HEMOGLOBIN 26.8 pg (27.0-31.0); MEAN PLATELET VOLUME 7.8 fL (7.2-11.7); RBC 4.33 Mil/uL (4.40-5.90); RED CELL DISTRIBUTION WIDTH 15.8 % (11.5-14.5); WHITE BLOOD COUNT 7.4 K/uL (4.8-10.8)
[2019-01-22 14:15] LABS: CALCIUM 9.5 mg/dl (8.6-10.4)
[2019-01-23] MEDS: Piperacill/Tazo 3.375gm in Dex 3.375 GM/50 ML BAG IVPB SCH (05:12)
[2019-01-23 08:40] LABS: BASO % 0.7 % (0.0-2.0); EOS # 0.3 K/uL (0.0-0.7); EOS % 5.8 % (0.0-4.0); HEMOGLOBIN 10.7 g/dL (12.0-18.0); LYMPH # 1.5 K/uL (1.0-4.3); LYMPH % 24.5 % (20.0-40.0); MEAN CELL VOLUME 80.9 fL (80.0-94.0); MEAN CORPUSCULAR HEMOGLOBIN 25.8 pg (27.0-31.0); MEAN CORPUSCULAR HGB CONC 31.9 g/dL (33.0-37.0); MEAN PLATELET VOLUME 7.6 fL (7.2-11.7); MONO # 0.6 K/uL (0.0-0.8); MONO % 10.2 % (0.0-10.0); NEUT # 3.5 K/uL (1.8-7.0); NEUT % 58.8 % (50.0-75.0); RBC 4.13 Mil/uL (4.40-5.90); RED CELL DISTRIBUTION WIDTH 16.1 % (11.5-14.5); WHITE BLOOD COUNT 5.9 K/uL (4.8-10.8)
[2019-01-23 08:49] LABS: ALBUMIN 3.6 g/dL (3.5-5.0); CALCIUM 8.9 mg/dl (8.6-10.4)
[2019-01-23] MEDS: Saccharomyces Boulardi 250 mg Cap PO SCH ×2 (10:19→18:29)
[2019-01-23] MEDS: Pantoprazole 40 mg EC Tab PO SCH (10:19)
[2019-01-23] MEDS: Metoprolol Succinate 25 mg XL Tab PO SCH (10:20)
[2019-01-23] MEDS: Enoxaparin 40 mg Syringe SC SCH (10:20)
[2019-01-23] MEDS: Sodium Chloride 0.9% 1,000 ML IV SCH ×2 (10:23→22:04)
[2019-01-23] MEDS: Silver Sulfadiazine 1% Cream (20 gm) TOP SCH (10:29)
[2019-01-23] MEDS: Ammonium Lactate 12% Lotion (225 g) EXT SCH (10:29)
--- NOTE | 2019-01-23 11:15 | CP.PCM.CON ---
<Aggie Forde - Last Filed: 01/23/19 17:59> History of Present Illness - History of Present Illness History of Present Illness: PGY-1 Neurology Consult Note for Dr. Ortega Patient is a 88 year old male with PMHx of hypertension, hyperlipidemia, CAD s/p 4 stents, anemia, chronic venous stasis with chronic tibial ulcer, and dementia admitted for chronic venous stasis dermatitis. Ne urology was consulted by Dr. Mercer for possible neurosyphilis. 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 He was given a week of pills and told that it was no big deal. He denies any skin changes such as gummas or rash. Denies ocular changes, headache, parasthesias, numbness, tingling. Per chart, he is at baseline mentation per son who lives with him. However, due to a positive RPR and FTA-Abs, primary would like to evaluate for neurosyphilis. Patient is a poor historian and denies most parts of interview in an attempt to leave hospital. PMH: HTN, HLD, CAD s/p 4 stents, anemia, chronic venous statis with chronic tibial ulcer, dementia Med: as per DEC All: NKDA SxHx: PCI placement FamHx: denies SocHx: Social alcohol use, denies ever tobacco or illicit drugs. Lives with son. Review of Systems - Constitutional Constitutional: absent: Anorexia, Chills, Excessive Sweating, Fatigue, Increased Appetite, Malaise, Weight Gain, Weight Loss, Weakness - Neurological Neurological: Confusion, Lack of Coordination. absent: Abnormal Gait, Abnormal Hearing, Dizziness, Numbness, Focal Weakness, Headaches, Memory Loss, Paresthesias, Sensory Deficit, Syncope, Tingling, Tremor, Vertigo, Weakness Past Patient History - Past Medical History & Family History Past Medical History?: Yes - Past Social History Smoking Status: Never Smoked Alcohol: Occasional Drugs: Denies - CARDIAC Hx Cardiac Disorders: Yes (4 STENTS) Hx Hypercholesterolemia: Yes Hx Hypertension: Yes - PULMONARY Hx Respiratory Disorders: No - NEUROLOGICAL Hx Dementia: Yes - HEENT Hx HEENT Problems: No - RENAL Hx Chronic Kidney Disease: No - ENDOCRINE/METABOLIC Hx Endocrine Disorders: No - HEMATOLOGICAL/ONCOLOGICAL Hx Blood Disorders: No - INTEGUMENTARY Hx Dermatological Problems: Yes (SEE COMMENT) Other/Comment: LLE ULCER - MUSCULOSKELETAL/RHEUMATOLOGICAL Hx Musculoskeletal Disorders: No Hx Falls: No - GASTROINTESTINAL Hx Gastrointestinal Disorders: No - GENITOURINARY/GYNECOLOGICAL Hx Genitourinary Disorders: No - PSYCHIATRIC Hx Substance Use: No - SURGICAL HISTORY Hx Surgeries: Yes Hx Herniorrhaphy: Yes Other/Comment: heart surgery- with stents 4 years ago - ANESTHESIA Hx Anesthesia: Yes Hx Anesthesia Reactions: No Hx Malignant Hyperthermia: No Meds Allergies/Adverse Reactions: Allergies Allergy/AdvReac Type Severity Reaction Status Date / Time No Known Allergies Allergy Verified 01/18/19 09:20 - Medications Medications: Current Medications Acetaminophen (Tylenol 325mg Tab) 650 mg PO Q6 PRN PRN Reason: Pain, Mild (1-3) Aspirin (Ecotrin) 81 mg PO DAILY [facility] Last Admin: 01/23/19 10:20 Dose: 81 mg Enoxaparin Sodium (Lovenox) 40 mg SC DAILY [facility] Last Admin: 01/23/19 10:20 Dose: 40 mg Hydrochlorothiazide (Microzide) 12.5 mg PO DAILY [facility] Last Admin: 01/23/19 10:19 Dose: 12.5 mg Sodium Chloride (Sodium Chloride 0.9%) 1,000 mls @ 100 mls/hr IV .Q10H [facility] Last Admin: 01/23/19 10:23 Dose: 100 mls/hr Lactic Acid (Lac-Hydrin 12% Lotion (225 G)) 0 gm EXT DAILY [facility] Last Admin: 01/23/19 10:29 Dose: Not Given Lisinopril (Zestril) 40 mg PO DAILY [facility] Last Admin: 01/22/19 10:01 Dose: 40 mg Metoprolol Succinate (Toprol Xl) 25 mg PO DAILY [facility] Last Admin: 01/23/19 10:20 Dose: 25 mg Pantoprazole Sodium (Protonix Ec Tab) 40 mg PO DAILY [facility] Last Admin: 01/23/19 10:19 Dose: 40 mg Risperidone (Risperdal Tab) 1 mg PO DAILY [facility] Last Admin: 01/23/19 10:19 Dose: 1 mg Rosuvastatin Calcium (Crestor) 5 mg PO HS [facility] Last Admin: 01/22/19 22:04 Dose: 5 mg Saccharomyces Boulardii (Florastor) 250 mg PO BID [facility] Last Admin: 01/23/19 10:19 Dose: 250 mg Silver Sulfadiazine (Silvadene 1% 20 Gm) 0 ea TOP DAILY [facility] Last Admin: 01/23/19 10:29 Dose: Not Given Physical Exam - Constitutional Appears: Non-toxic, No Acute Distress - Head Exam Head Exam: ATRAUMATIC, NORMOCEPHALIC - Eye Exam Eye Exam: EOMI, Normal appearance, PERRL Pupil Exam: NORMAL ACCOMODATION - ENT Exam ENT Exam: Mucous Membranes Moist - Respiratory Exam Respiratory Exam: Clear to Auscultation Bilateral, NORMAL BREATHING PATTERN - GI/Abdominal Exam GI & Abdominal Exam: Normal Bowel Sounds. absent: Distended, Tenderness - Extremities Exam Additional comments: left anterior tibial ulcer noted, wrapped in dressing as changed by wound care. c/d/i. erythematous and warm to touch chronic venous stasis noted L>R - Neurological Exam Neurological exam: Abnormal Gait, Alert, CN II-XII Intact, Reflexes Normal Additional comments: not oriented to place or time poor memory recall and attention. unable to do serial 7s - Expanded Neurological Exam Expanded Speech: Fluid Speech Cranial nerves: EOM's Intact: Normal, Facial Sensation: Normal, Tongue Deviation: Normal Cerebellar Function: Finger to Nose: Normal Upper motor neuron: Pronator Drift: Normal Neuro motor strength exam: Left Upper Extremity: 4, Right Upper Extremity: 4, Left Lower Extremity: 4, Right Lower Extremity: 3 DTR: Patellar Left: 2+, Patellar Right: 2+ Coma Scale Eye Opening: SPONTANEOUS Coma Scale Motor Response: OBEYS COMMANDS Coma Scale Verbal: Confused Coma Scale Total: 14 - Psychiatric Exam Psychiatric exam: Normal Affect, Normal Mood - Skin Skin Exam: Dry, Intact, Normal Color, Warm Additional comments: dry scaly skin along both LE Results - Vital Signs Recent Vital Signs: Last Vital Signs Temp 97.5 F L 01/23/19 07:20 Pulse 57 L 01/23/19 07:20 Resp 20 01/23/19 07:20 BP 134/57 L 01/23/19 07:20 Pulse Ox 99 01/23/19 07:20 - Labs Result Diagrams: 01/23/19 08:26 01/23/19 08:26 Labs: Laboratory Results - last 24 hr 01/20/19 01/22/19 01/22/19 17:00 11:04 13:42 WBC 7.4 RBC 4.33 L Hgb 11.6 L Hct 35.1 MCV 81.1 MCH 26.8 L MCHC 33.0 RDW 15.8 H Plt Count 294 MPV 7.8 Neut % (Auto) Lymph % (Auto) [place] % (Auto) Eos % (Auto) Baso % (Auto) Neut # (Auto) Lymph # (Auto) [place] # (Auto) Eos # (Auto) Baso # (Auto) Sodium Potassium Chloride Carbon Dioxide Anion Gap BUN Creatinine Est GFR ( Amer) Est GFR (Non-Af Amer) POC Glucose (mg/dL) 130 H Random Glucose Calcium Phosphorus Magnesium Total Bilirubin AST ALT Alkaline Phosphatase Total Protein Albumin Globulin Albumin/Globulin Ratio T.pallidum Ab (FTA-ABS) Reactive minimal H 01/22/19 01/22/19 01/22/19 13:42 16:22 21:00 WBC RBC Hgb Hct MCV MCH MCHC RDW Plt Count MPV Neut % (Auto) Lymph % (Auto) [place] % (Auto) Eos % (Auto) Baso % (Auto) Neut # (Auto) Lymph # (Auto) [place] # (Auto) Eos # (Auto) Baso # (Auto) Sodium 140 Potassium 3.5 L Chloride 103 Carbon Dioxide 28 Anion Gap 13 BUN 24 H Creatinine 1.6 H Est GFR ( Amer) 50 Est GFR (Non-Af Amer) 41 POC Glucose (mg/dL) 157 H 134 H Random Glucose 147 H D Calcium 9.5 Phosphorus 3.2 Magnesium 2.2 Total Bilirubin 0.4 AST 20 ALT 9 L D Alkaline Phosphatase 63 Total Protein 7.9 Albumin 4.0 Globulin 3.9 Albumin/Globulin Ratio 1.0 T.pallidum Ab (FTA-ABS) 01/23/19 01/23/19 01/23/19 06:56 08:26 08:26 WBC 5.9 RBC 4.13 L Hgb 10.7 L Hct 33.4 L MCV 80.9 MCH 25.8 L MCHC 31.9 L RDW 16.1 H Plt Count 256 MPV 7.6 Neut % (Auto) 58.8 Lymph % (Auto) 24.5 [place] % (Auto) 10.2 H Eos % (Auto) 5.8 H Baso % (Auto) 0.7 Neut # (Auto) 3.5 Lymph # (Auto) 1.5 [place] # (Auto) 0.6 Eos # (Auto) 0.3 Baso # (Auto) 0.0 Sodium 140 Potassium 3.7 Chloride 104 Carbon Dioxide 28 Anion Gap 12 BUN 26 H Creatinine 1.6 H Est GFR ( Amer) 50 Est GFR (Non-Af Amer) 41 POC Glucose (mg/dL) 87 Random Glucose 88 D Calcium 8.9 Phosphorus 4.0 Magnesium 2.4 H Total Bilirubin 0.5 AST 26 ALT 7 L D Alkaline Phosphatase 56 Total Protein 7.2 Albumin 3.6 Globulin 3.5 Albumin/Globulin Ratio 1.0 T.pallidum Ab (FTA-ABS) 01/23/19 11:03 WBC RBC Hgb Hct MCV MCH MCHC RDW Plt Count MPV Neut % (Auto) Lymph % (Auto) [place] % (Auto) Eos % (Auto) Baso % (Auto) Neut # (Auto) Lymph # (Auto) [place] # (Auto) Eos # (Auto) Baso # (Auto) Sodium Potassium Chloride Carbon Dioxide Anion Gap BUN Creatinine Est GFR ( Amer) Est GFR (Non-Af Amer) POC Glucose (mg/dL) 154 H Random Glucose Calcium Phosphorus Magnesium Total Bilirubin AST ALT Alkaline Phosphatase Total Protein Albumin Globulin Albumin/Globulin Ratio T.pallidum Ab (FTA-ABS) Assessment & Plan (1) Dementia Assessment and Plan: r/o Neurosyphilis RPR (01/20): reactive with 1:1 titer FTA-Abs (01/20): minimally reactive - plan for LP tomorrow, 01/24 - will contact radha Paulson [phone], for consent as patient is demented at baseline d/w Dr. Shannon Forde PGY-1 Status: Chronic - Date & Time Date: 01/23/19 Time: 11:30 <Tao Ortega - Last Filed: 01/24/19 13:45> Meds - Medications Medications: Current Medications Acetaminophen (Tylenol 325mg Tab) 650 mg PO Q6 PRN PRN Reason: Pain, Mild (1-3) Aspirin (Ecotrin) 81 mg PO DAILY [facility] Last Admin: 01/24/19 09:14 Dose: 81 mg Enoxaparin Sodium (Lovenox) 40 mg SC DAILY [facility] Last Admin: 01/24/19 09:14 Dose: 40 mg Hydrochlorothiazide (Microzide) 12.5 mg PO DAILY [facility] Last Admin: 01/24/19 09:13 Dose: 12.5 mg Lactic Acid (Lac-Hydrin 12% Lotion (225 G)) 0 gm EXT DAILY [facility] Last Admin: 01/24/19 09:14 Dose: 1 appl Lisinopril (Zestril) 40 mg PO DAILY [facility] Last Admin: 01/22/19 10:01 Dose: 40 mg Metoprolol Succinate (Toprol Xl) 25 mg PO DAILY [facility] Last Admin: 01/24/19 09:14 Dose: 25 mg Pantoprazole Sodium (Protonix Ec Tab) 40 mg PO DAILY [facility] Last Admin: 01/24/19 09:14 Dose: 40 mg Risperidone (Risperdal Tab) 1 mg PO DAILY [facility] Last Admin: 01/24/19 09:14 Dose: 1 mg Rosuvastatin Calcium (Crestor) 5 mg PO HS [facility] Last Admin: 01/23/19 21:46 Dose: 5 mg Saccharomyces Boulardii (Florastor) 250 mg PO BID [facility] Last Admin: 01/24/19 09:13 Dose: 250 mg Silver Sulfadiazine (Silvadene 1% 20 Gm) 0 ea TOP DAILY [facility] Last Admin: 01/24/19 09:15 Dose: 1 applic Results - Vital Signs Recent Vital Signs: Last Vital Signs Temp 97.7 F 01/24/19 08:49 Pulse 60 01/24/19 08:49 Resp 20 01/24/19 08:49 BP 163/73 H 01/24/19 08:49 Pulse Ox 96 01/24/19 08:49 - Labs Result Diagrams: 01/24/19 08:30 01/24/19 08:30 Labs: Laboratory Results - last 24 hr 01/23/19 01/23/19 01/24/19 16:30 21:15 06:36 WBC RBC Hgb Hct MCV MCH MCHC RDW Plt Count MPV Neut % (Auto) Lymph % (Auto) [place] % (Auto) Eos % (Auto) Baso % (Auto) Neut # (Auto) Lymph # (Auto) [place] # (Auto) Eos # (Auto) Baso # (Auto) Sodium Potassium Chloride Carbon Dioxide Anion Gap BUN Creatinine Est GFR ( Amer) Est GFR (Non-Af Amer) POC Glucose (mg/dL) 129 H 124 H 116 H Random Glucose Calcium Phosphorus Magnesium Total Bilirubin AST ALT Alkaline Phosphatase Total Protein Albumin Globulin Albumin/Globulin Ratio 01/24/19 01/24/19 01/24/19 08:30 08:30 11:36 WBC 4.7 L RBC 3.71 L Hgb 10.0 L Hct 29.8 L MCV 80.4 MCH 26.9 L MCHC 33.5 RDW 15.5 H Plt Count 241 MPV 7.7 Neut % (Auto) 59.5 Lymph % (Auto) 22.4 [place] % (Auto) 9.3 Eos % (Auto) 7.9 H Baso % (Auto) 0.9 Neut # (Auto) 2.8 Lymph # (Auto) 1.1 [place] # (Auto) 0.4 Eos # (Auto) 0.4 Baso # (Auto) 0.0 Sodium 138 Potassium 3.7 Chloride 106 Carbon Dioxide 28 Anion Gap 7 L BUN 18 Creatinine 1.0 Est GFR ( Amer) > 60 Est GFR (Non-Af Amer) > 60 POC Glucose (mg/dL) 119 H Random Glucose 94 Calcium 8.8 Phosphorus 2.6 Magnesium 1.9 Total Bilirubin 0.3 AST 22 ALT 8 L Alkaline Phosphatase 51 Total Protein 6.6 Albumin 3.3 L Globulin 3.3 Albumin/Globulin Ratio 1.0 Assessment & Plan (1) Encephalopathy Status: Acute Attending/Attestation - Attestation I have personally seen and examined this patient.: Yes I have fully participated in the care of the patient.: Yes I have reviewed all pertinent clinical information: Yes Notes (Text): I agree with the assessment and plan. Neurosyphilis is possible. Will attempt LP tomorrow after obtaining consent from family since the patient is not able to provide consent. Thank you for this consultation.
--- NOTE | 2019-01-23 13:37 | CP.PCM.PN ---
Subjective - Date & Time of Evaluation Date of Evaluation: 01/23/19 Time of Evaluation: 13:34 - Subjective Subjective: Medicine Progress Note for Dr. Mercer's service S/E at bedside. Reports mild leg pain. Denies fevers, chills, chest pain, sob, n/v, constipation or diarrhea, and dysuria. Objective - Vital Signs/Intake and Output Vital Signs (last 24 hours): Temp Pulse Resp BP Pulse Ox 97.5 F L 57 L 20 134/57 L 99 01/23/19 07:20 01/23/19 07:20 01/23/19 07:20 01/23/19 07:20 01/23/19 07:20 Intake and Output: 01/23/19 01/23/19 06:59 18:59 Intake Total 500 Balance 500 - Medications Medications: Current Medications Acetaminophen (Tylenol 325mg Tab) 650 mg PO Q6 PRN PRN Reason: Pain, Mild (1-3) Aspirin (Ecotrin) 81 mg PO DAILY [facility] Last Admin: 01/23/19 10:20 Dose: 81 mg Enoxaparin Sodium (Lovenox) 40 mg SC DAILY [facility] Last Admin: 01/23/19 10:20 Dose: 40 mg Hydrochlorothiazide (Microzide) 12.5 mg PO DAILY [facility] Last Admin: 01/23/19 10:19 Dose: 12.5 mg Sodium Chloride (Sodium Chloride 0.9%) 1,000 mls @ 100 mls/hr IV .Q10H [facility] Last Admin: 01/23/19 10:23 Dose: 100 mls/hr Lactic Acid (Lac-Hydrin 12% Lotion (225 G)) 0 gm EXT DAILY [facility] Last Admin: 01/23/19 10:29 Dose: Not Given Lisinopril (Zestril) 40 mg PO DAILY [facility] Last Admin: 01/22/19 10:01 Dose: 40 mg Metoprolol Succinate (Toprol Xl) 25 mg PO DAILY [facility] Last Admin: 01/23/19 10:20 Dose: 25 mg Pantoprazole Sodium (Protonix Ec Tab) 40 mg PO DAILY [facility] Last Admin: 01/23/19 10:19 Dose: 40 mg Risperidone (Risperdal Tab) 1 mg PO DAILY [facility] Last Admin: 01/23/19 10:19 Dose: 1 mg Rosuvastatin Calcium (Crestor) 5 mg PO HS [facility] Last Admin: 01/22/19 22:04 Dose: 5 mg Saccharomyces Boulardii (Florastor) 250 mg PO BID [facility] Last Admin: 01/23/19 10:19 Dose: 250 mg Silver Sulfadiazine (Silvadene 1% 20 Gm) 0 ea TOP DAILY [facility] Last Admin: 01/23/19 10:29 Dose: Not Given - Labs Labs: 01/23/19 08:26 01/23/19 08:26 PT 12.5 SECONDS (9.7-12.2) H 01/18/19 10:46 INR 1.1 01/18/19 10:46 APTT 35 SECONDS (21-34) H 01/18/19 10:46 - Additional Findings Additional findings: - Constitutional Appears: Well, Non-toxic, No Acute Distress - Head Exam Head Exam: ATRAUMATIC, NORMAL INSPECTION, NORMOCEPHALIC - Eye Exam Eye Exam: EOMI, Normal appearance, PERRL - ENT Exam ENT Exam: Mucous Membranes Moist - Respiratory Exam Respiratory Exam: Clear to Auscultation Bilateral, NORMAL BREATHING PATTERN. absent: Decreased Breath Sounds, Rales, Rhonchi, Wheezes - GI/Abdominal Exam GI & Abdominal Exam: Normal Bowel Sounds, Soft. absent: Distended, Tenderness - Extremities Exam Additional comments: Chronic venous stasis noted L> R Left anterior tibial ulcer noted, some drainage, non-malodorous, skin is dry and scaly (improving) Left lower extremity dressed in patrick bandage - Neurological Exam Neurological exam: Alert - Psychiatric Exam Psychiatric exam: Normal Affect, Normal Mood - Skin Skin Exam: Dry, Intact, Normal Color, Warm Assessment and Plan - Assessment and Plan (Free Text) Assessment: 88 year old with PMHx of Hypertension, Hyperlipidemia, CAD with 4 stents, An emia, Chronic Venous Stasis with Chronic Tibial Ulcer and Dementia who presents to the ED with left lower leg pain and drainage from leg wound. Plan: Chronic Venous Stasis Dermatitis Venous Doppler - negative for DVT Antibiotics: Vancomycin 1 gram daily, Zosyn Q6H IVPB; will dc IV abx in AM as patient skin very scaly and breakdown is noticeable Wound cultures growing staph aureus and raoultella ornithinolytica; likely skin contaminated Wound care per Dr Ruslan Shipman to be applied from the knee down Podiatry on consult, help appreciated Dementia vs Syphilis RPR positive FTA-Abs minimally reactive Risperidone 1mg po daily Neurology Consulted: Dr. Ortega- appreciate recommendations concern for neurosyphilis, will appreciate neuro input for possible LP or just extended IV tx Hypertension Aspirin 81 mg PO daily Lisinopril 40 mg PO daily, HCTZ 12.5mg PO daily Metoprolol tartrate 25 mg PO daily Hyperlipidemia Continue Crestor 5mg PO QHS History of CAD with 4 stents Aspirin 81 mg PO daily Lisinopril 40 mg PO daily HCTZ 12.5mg PO daily, Metoprolol tartrate 25 mg PO daily Crestor 5mg PO QHS Anemia Iron 31, TIBC 260, %saturation 12 Patient will need outpatient GI workup Microscopic hematuria UA on admission showing +2 blood and RBCs Urine cytology pending Hgb stable GI/DVT Prophylactic Measures GI PPX: Protonix, Florastor BID DVT PPX: Lovenox Son's name is Shannan Espana, contact [phone] Disposition: Family refused GILBERTO; pending neuro eval Plan discussed with Dr Ruslan Morejon DO PGY-1
[2019-01-23] MEDS ORDERED: Lidocaine 1% (10 ml) Inj INFIL ONE (15:55)
[2019-01-24] MEDS: Sodium Chloride 0.9% 1,000 ML IV SCH ×2 (07:05→09:14)
[2019-01-24 08:57] LABS: BASO % 0.9 % (0.0-2.0); EOS # 0.4 K/uL (0.0-0.7); EOS % 7.9 % (0.0-4.0); LYMPH # 1.1 K/uL (1.0-4.3); LYMPH % 22.4 % (20.0-40.0); MEAN CELL VOLUME 80.4 fL (80.0-94.0); MEAN CORPUSCULAR HEMOGLOBIN 26.9 pg (27.0-31.0); MEAN CORPUSCULAR HGB CONC 33.5 g/dL (33.0-37.0); MEAN PLATELET VOLUME 7.7 fL (7.2-11.7); MONO # 0.4 K/uL (0.0-0.8); MONO % 9.3 % (0.0-10.0); NEUT # 2.8 K/uL (1.8-7.0); NEUT % 59.5 % (50.0-75.0); RBC 3.71 Mil/uL (4.40-5.90); RED CELL DISTRIBUTION WIDTH 15.5 % (11.5-14.5); WHITE BLOOD COUNT 4.7 K/uL (4.8-10.8)
[2019-01-24 09:05] LABS: ALBUMIN 3.3 g/dL (3.5-5.0); ALT/SGPT 8 U/L (21-72); AST/SGOT 22 U/L (17-59); BLOOD UREA NITROGEN 18 mg/dL (9-20); CALCIUM 8.8 mg/dl (8.6-10.4); GFR NON-AFRICAN AMERICAN > 60
[2019-01-24] MEDS: Saccharomyces Boulardi 250 mg Cap PO SCH ×2 (09:13→18:04)
[2019-01-24] MEDS: Metoprolol Succinate 25 mg XL Tab PO SCH (09:14)
[2019-01-24] MEDS: Pantoprazole 40 mg EC Tab PO SCH (09:14)
[2019-01-24] MEDS: Ammonium Lactate 12% Lotion (225 g) EXT SCH (09:14)
[2019-01-24] MEDS: Enoxaparin 40 mg Syringe SC SCH (09:14)
[2019-01-24] MEDS: Silver Sulfadiazine 1% Cream (20 gm) TOP SCH (09:15)
--- NOTE | 2019-01-24 13:08 | CP.PCM.PN ---
Subjective - Date & Time of Evaluation Date of Evaluation: 01/24/19 Time of Evaluation: 13:04 - Subjective Subjective: Medicine Progress Note for Dr. Mercer's service S/E at bedside. Offers no acute complaints. Pending LP with neuro team. Denies fevers, chills, chest pain, sob, n/v, constipation or diarrhea, and dysuria. Objective - Vital Signs/Intake and Output Vital Signs (last 24 hours): Temp Pulse Resp BP Pulse Ox 97.7 F 60 20 163/73 H 96 01/24/19 08:49 01/24/19 08:49 01/24/19 08:49 01/24/19 08:49 01/24/19 08:49 Intake and Output: 01/24/19 01/24/19 06:59 18:59 Intake Total 800 Output Total 150 Balance -150 800 - Medications Medications: Current Medications Acetaminophen (Tylenol 325mg Tab) 650 mg PO Q6 PRN PRN Reason: Pain, Mild (1-3) Aspirin (Ecotrin) 81 mg PO DAILY [facility] Last Admin: 01/24/19 09:14 Dose: 81 mg Enoxaparin Sodium (Lovenox) 40 mg SC DAILY [facility] Last Admin: 01/24/19 09:14 Dose: 40 mg Hydrochlorothiazide (Microzide) 12.5 mg PO DAILY [facility] Last Admin: 01/24/19 09:13 Dose: 12.5 mg Lactic Acid (Lac-Hydrin 12% Lotion (225 G)) 0 gm EXT DAILY [facility] Last Admin: 01/24/19 09:14 Dose: 1 appl Lisinopril (Zestril) 40 mg PO DAILY [facility] Last Admin: 01/22/19 10:01 Dose: 40 mg Metoprolol Succinate (Toprol Xl) 25 mg PO DAILY [facility] Last Admin: 01/24/19 09:14 Dose: 25 mg Pantoprazole Sodium (Protonix Ec Tab) 40 mg PO DAILY [facility] Last Admin: 01/24/19 09:14 Dose: 40 mg Risperidone (Risperdal Tab) 1 mg PO DAILY [facility] Last Admin: 01/24/19 09:14 Dose: 1 mg Rosuvastatin Calcium (Crestor) 5 mg PO HS [facility] Last Admin: 01/23/19 21:46 Dose: 5 mg Saccharomyces Boulardii (Florastor) 250 mg PO BID [facility] Last Admin: 01/24/19 09:13 Dose: 250 mg Silver Sulfadiazine (Silvadene 1% 20 Gm) 0 ea TOP DAILY [facility] Last Admin: 01/24/19 09:15 Dose: 1 applic - Labs Labs: 01/24/19 08:30 01/24/19 08:30 PT 12.5 SECONDS (9.7-12.2) H 01/18/19 10:46 INR 1.1 01/18/19 10:46 APTT 35 SECONDS (21-34) H 01/18/19 10:46 - Constitutional Appears: Non-toxic, No Acute Distress - Head Exam Head Exam: NORMAL INSPECTION, NORMOCEPHALIC - Eye Exam Eye Exam: EOMI, Normal appearance. absent: Nystagmus, Scleral icterus - ENT Exam ENT Exam: Mucous Membranes Dry - Respiratory Exam Respiratory Exam: Clear to Ausculation Bilateral, NORMAL BREATHING PATTERN. absent: Rales, Rhonchi, Wheezes - Cardiovascular Exam Cardiovascular Exam: REGULAR RHYTHM, +S1, +S2 - GI/Abdominal Exam GI & Abdominal Exam: Soft, Normal Bowel Sounds. absent: Guarding, Rigid, Tenderness - Extremities Exam Additional comments: Chronic venous stasis noted L> R Left anterior tibial ulcer noted, some drainage, non-malodorous, skin is dry and scaly (improving) Left lower extremity dressed in patrick bandage - Neurological Exam Neurological Exam: Alert, Awake, Oriented x3 - Psychiatric Exam Psychiatric exam: Normal Affect, Normal Mood - Skin Skin Exam: Dry, Intact, Normal Color Assessment and Plan - Assessment and Plan (Free Text) Assessment: 88 year old with PMHx of Hypertension, Hyperlipidemia, CAD with 4 stents, Anemia, Chronic Venous Stasis with Chronic Tibial Ulcer and Dementia who presents to the ED with left lower leg pain and drainage from leg wound. RPR and FTA-abs positive, LP pending. Plan: Chronic Venous Stasis Dermatitis Venous Doppler - negative for DVT Antibiotics: Vancomycin 1 gram daily, Zosyn Q6H IVPB; will dc IV abx in AM as patient skin very scaly and breakdown is noticeable Wound cultures growing staph aureus and raoultella ornithinolytica; likely skin contaminated Wound care per Dr Ruslan Shipman to be applied from the knee down Podiatry on consult, help appreciated AARON(resolved) s/p NS @ 100mls/hr Cr stable will trend cmp Dementia vs Syphilis RPR positive FTA-Abs minimally reactive Risperidone 1mg po daily ID consulted: Dr. Reyes- rigoberto appreciated Neurology Consulted: Dr. Ortega- QUAN planned for today LP pending Hypertension Aspirin 81 mg PO daily Lisinopril 40 mg PO daily, HCTZ 12.5mg PO daily Metoprolol tartrate 25 mg PO daily Hyperlipidemia Continue Crestor 5mg PO QHS History of CAD with 4 stents Aspirin 81 mg PO daily Lisinopril 40 mg PO daily HCTZ 12.5mg PO daily, Metoprolol tartrate 25 mg PO daily Crestor 5mg PO QHS Anemia Iron 31, TIBC 260, %saturation 12 Patient will need outpatient GI workup Microscopic hematuria UA on admission showing +2 blood and RBCs Urine cytology pending Hgb stable GI/DVT Prophylactic Measures GI PPX: Protonix, Florastor BID DVT PPX: Lovenox Son's name is Shannan Espana, contact [phone] Disposition: Family refused GILBERTO; pending neuro LP and ID eval Plan discussed with Dr Ruslan Morejon DO PGY-1
--- NOTE | 2019-01-24 13:43 | CP.PCM.PN ---
Subjective - Date & Time of Evaluation Date of Evaluation: 01/24/19 Time of Evaluation: 13:39 - Subjective Subjective: Neurology Progress Note: Mr. Paulson was seen and examined today at bedside. He continues to have a similar level of chronic dementia. No acute events over night. 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 Objective - Vital Signs/Intake and Output Vital Signs (last 24 hours): Temp Pulse Resp BP Pulse Ox 97.7 F 60 20 163/73 H 96 01/24/19 08:49 01/24/19 08:49 01/24/19 08:49 01/24/19 08:49 01/24/19 08:49 Intake and Output: 01/24/19 01/24/19 06:59 18:59 Intake Total 800 Output Total 150 Balance -150 800 - Medications Medications: Current Medications Acetaminophen (Tylenol 325mg Tab) 650 mg PO Q6 PRN PRN Reason: Pain, Mild (1-3) Aspirin (Ecotrin) 81 mg PO DAILY [facility] Last Admin: 01/24/19 09:14 Dose: 81 mg Enoxaparin Sodium (Lovenox) 40 mg SC DAILY [facility] Last Admin: 01/24/19 09:14 Dose: 40 mg Hydrochlorothiazide (Microzide) 12.5 mg PO DAILY [facility] Last Admin: 01/24/19 09:13 Dose: 12.5 mg Lactic Acid (Lac-Hydrin 12% Lotion (225 G)) 0 gm EXT DAILY [facility] Last Admin: 01/24/19 09:14 Dose: 1 appl Lisinopril (Zestril) 40 mg PO DAILY [facility] Last Admin: 01/22/19 10:01 Dose: 40 mg Metoprolol Succinate (Toprol Xl) 25 mg PO DAILY [facility] Last Admin: 01/24/19 09:14 Dose: 25 mg Pantoprazole Sodium (Protonix Ec Tab) 40 mg PO DAILY [facility] Last Admin: 01/24/19 09:14 Dose: 40 mg Risperidone (Risperdal Tab) 1 mg PO DAILY [facility] Last Admin: 01/24/19 09:14 Dose: 1 mg Rosuvastatin Calcium (Crestor) 5 mg PO HS [facility] Last Admin: 01/23/19 21:46 Dose: 5 mg Saccharomyces Boulardii (Florastor) 250 mg PO BID [facility] Last Admin: 01/24/19 09:13 Dose: 250 mg Silver Sulfadiazine (Silvadene 1% 20 Gm) 0 ea TOP DAILY [facility] Last Admin: 01/24/19 09:15 Dose: 1 applic - Labs Labs: 01/24/19 08:30 01/24/19 08:30 PT 12.5 SECONDS (9.7-12.2) H 01/18/19 10:46 INR 1.1 01/18/19 10:46 APTT 35 SECONDS (21-34) H 01/18/19 10:46 - Neurological Exam Neurological Exam: Abnormal Gait, Altered, Awake, CN II-XII Intact, Reflexes Normal Neuro motor strength exam: Left Upper Extremity: 4, Right Upper Extremity: 4, Left Lower Extremity: 4, Right Lower Extremity: 4 Assessment and Plan (1) Encephalopathy Assessment & Plan: Likely due to baseline dementia. Could be due to neurosyphillis as well, but patient states he was treated many years ago with anti-biotics. LP could not be completed at bedside. Consider performing it under fluoroscopy with radiology. Status: Acute
[2019-01-25 08:12] LABS: BASO % 0.7 % (0.0-2.0); EOS # 0.5 K/uL (0.0-0.7); EOS % 12.1 % (0.0-4.0); HEMOGLOBIN 10.8 g/dL (12.0-18.0); LYMPH # 1.1 K/uL (1.0-4.3); LYMPH % 25.7 % (20.0-40.0); MEAN CELL VOLUME 80.5 fL (80.0-94.0); MEAN CORPUSCULAR HEMOGLOBIN 26.8 pg (27.0-31.0); MEAN CORPUSCULAR HGB CONC 33.3 g/dL (33.0-37.0); MEAN PLATELET VOLUME 7.6 fL (7.2-11.7); MONO # 0.5 K/uL (0.0-0.8); MONO % 11.8 % (0.0-10.0); NEUT # 2.1 K/uL (1.8-7.0); NEUT % 49.7 % (50.0-75.0); RBC 4.02 Mil/uL (4.40-5.90); RED CELL DISTRIBUTION WIDTH 15.7 % (11.5-14.5); WHITE BLOOD COUNT 4.2 K/uL (4.8-10.8)
[2019-01-25 08:28] LABS: ALB/GLOB RATIO 1.1 (1.0-2.1); ALBUMIN 3.7 g/dL (3.5-5.0); ALT/SGPT < 6 U/L (21-72); AST/SGOT 27 U/L (17-59); BLOOD UREA NITROGEN 17 mg/dL (9-20); CALCIUM 9.3 mg/dl (8.6-10.4); GFR NON-AFRICAN AMERICAN > 60
[2019-01-25] MEDS: Saccharomyces Boulardi 250 mg Cap PO SCH ×2 (11:14→17:37)
[2019-01-25] MEDS: Pantoprazole 40 mg EC Tab PO SCH (11:14)
[2019-01-25] MEDS: Metoprolol Succinate 25 mg XL Tab PO SCH (11:15)
[2019-01-25] MEDS: Ammonium Lactate 12% Lotion (225 g) EXT SCH (11:17)
[2019-01-25] MEDS: Enoxaparin 40 mg Syringe SC SCH (11:17)
[2019-01-25] MEDS: Silver Sulfadiazine 1% Cream (20 gm) TOP SCH (11:18)
--- NOTE | 2019-01-25 13:50 | CP.PCM.PN ---
Subjective - Date & Time of Evaluation Date of Evaluation: 01/25/19 Time of Evaluation: 13:42 - Subjective Subjective: Medicine Progress Note for Dr. Mercer's service S/E at bedside. Offers no acute complaints. Denies fevers, chills, chest pain, sob, n/v, constipation or diarrhea, and dysuria. Objective - Vital Signs/Intake and Output Vital Signs (last 24 hours): Temp Pulse Resp BP Pulse Ox 98.1 F 57 L 20 128/64 94 L 01/25/19 07:00 01/25/19 07:00 01/25/19 07:00 01/25/19 07:00 01/25/19 07:00 Intake and Output: 01/25/19 01/25/19 06:59 18:59 Intake Total 400 Balance 400 - Medications Medications: Current Medications Acetaminophen (Tylenol 325mg Tab) 650 mg PO Q6 PRN PRN Reason: Pain, Mild (1-3) Aspirin (Ecotrin) 81 mg PO DAILY [facility] Last Admin: 01/25/19 11:15 Dose: 81 mg Enoxaparin Sodium (Lovenox) 40 mg SC DAILY [facility] Last Admin: 01/25/19 11:17 Dose: 40 mg Hydrochlorothiazide (Microzide) 12.5 mg PO DAILY [facility] Last Admin: 01/25/19 11:15 Dose: 12.5 mg Lactic Acid (Lac-Hydrin 12% Lotion (225 G)) 0 gm EXT DAILY [facility] Last Admin: 01/25/19 11:17 Dose: 1 appl Lisinopril (Zestril) 40 mg PO DAILY [facility] Last Admin: 01/22/19 10:01 Dose: 40 mg Metoprolol Succinate (Toprol Xl) 25 mg PO DAILY [facility] Last Admin: 01/25/19 11:15 Dose: 25 mg Pantoprazole Sodium (Protonix Ec Tab) 40 mg PO DAILY [facility] Last Admin: 01/25/19 11:14 Dose: 40 mg Risperidone (Risperdal Tab) 1 mg PO DAILY [facility] Last Admin: 01/25/19 11:15 Dose: 1 mg Rosuvastatin Calcium (Crestor) 5 mg PO HS [facility] Last Admin: 01/24/19 22:03 Dose: 5 mg Saccharomyces Boulardii (Florastor) 250 mg PO BID [facility] Last Admin: 01/25/19 11:14 Dose: 250 mg Silver Sulfadiazine (Silvadene 1% 20 Gm) 0 ea TOP DAILY [facility] Last Admin: 01/25/19 11:18 Dose: 1 applic - Labs Labs: 01/25/19 07:53 01/25/19 07:53 PT 12.5 SECONDS (9.7-12.2) H 01/18/19 10:46 INR 1.1 01/18/19 10:46 APTT 35 SECONDS (21-34) H 01/18/19 10:46 - Additional Findings Additional findings: - Constitutional Appears: Non-toxic, No Acute Distress - Head Exam Head Exam: NORMAL INSPECTION, NORMOCEPHALIC - Eye Exam Eye Exam: EOMI, Normal appearance. absent: Nystagmus, Scleral icterus - ENT Exam ENT Exam: Mucous Membranes Dry - Respiratory Exam Respiratory Exam: Clear to Ausculation Bilateral, NORMAL BREATHING PATTERN. absent: Rales, Rhonchi, Wheezes - Cardiovascular Exam Cardiovascular Exam: REGULAR RHYTHM, +S1, +S2 - GI/Abdominal Exam GI & Abdominal Exam: Soft, Normal Bowel Sounds. absent: Guarding, Rigid, Tenderness - Extremities Exam Additional comments: Chronic venous stasis noted L> R Left anterior tibial ulcer noted, some drainage, non-malodorous, skin is dry and scaly (improving) Left lower extremity dressed in patrick bandage - Neurological Exam Neurological Exam: Alert, Awake, Oriented x3 - Psychiatric Exam Psychiatric exam: Normal Affect, Normal Mood - Skin Skin Exam: Dry, Intact, Normal Color Assessment and Plan - Assessment and Plan (Free Text) Assessment: 88 year old with PMHx of Hypertension, Hyperlipidemia, CAD with 4 stents, Anemia, Chronic Venous Stasis with Chronic Tibial Ulcer and Dementia who presents to the ED with left lower leg pain and drainage from leg wound. RPR and FTA-abs positive, LP could not be completed. Plan: Chronic Venous Stasis Dermatitis Venous Doppler - negative for DVT Antibiotics: Vancomycin 1 gram daily, Zosyn Q6H IVPB; will dc IV abx in AM as patient skin very scaly and breakdown is noticeable Wound cultures growing staph aureus and raoultella ornithinolytica; likely skin contaminated Wound care per Dr Ruslan Shipman to be applied from the knee down and Lachydrin Podiatry on consult, help appreciated Dementia vs Syphilis RPR positive FTA-Abs minimally reactive Risperidone 1mg po daily ID consulted: Dr. Krishna franklin appreciated Neurology Consulted: Dr. Ortega- LP could not be completed Hypertension Aspirin 81 mg PO daily Lisinopril 40 mg PO daily, HCTZ 12.5mg PO daily Metoprolol tartrate 25 mg PO daily Hyperlipidemia Continue Crestor 5mg PO QHS History of CAD with 4 stents Aspirin 81 mg PO daily Lisinopril 40 mg PO daily HCTZ 12.5mg PO daily, Metoprolol tartrate 25 mg PO daily Crestor 5mg PO QHS Anemia Iron 31, TIBC 260, %saturation 12 Patient will need outpatient GI workup Microscopic hematuria UA on admission showing +2 blood and RBCs Repeat UA +1 blood; less hgb Cr stable Hgb stable GI/DVT Prophylactic Measures GI PPX: Protonix, Florastor BID DVT PPX: Lovenox Son's name is Shannan Espana, contact [phone] Disposition: Family refused GILBERTO; LP could not be completed due to arthritic changes; pending ID eval Plan discussed with Dr Ruslan Morejon DO PGY-1
--- NOTE | 2019-01-25 19:46 | CP.PCM.PN ---
Subjective - Date & Time of Evaluation Date of Evaluation: 01/25/19 Time of Evaluation: 08:00 - Subjective Subjective: awake alert awaiting LP Objective - Vital Signs/Intake and Output Vital Signs (last 24 hours): Temp Pulse Resp BP Pulse Ox 97.9 F 84 20 154/79 H 96 01/25/19 16:00 01/25/19 16:00 01/25/19 16:00 01/25/19 16:00 01/25/19 16:00 - Medications Medications: Current Medications Acetaminophen (Tylenol 325mg Tab) 650 mg PO Q6 PRN PRN Reason: Pain, Mild (1-3) Aspirin (Ecotrin) 81 mg PO DAILY [facility] Last Admin: 01/25/19 11:15 Dose: 81 mg Enoxaparin Sodium (Lovenox) 40 mg SC DAILY [facility] Last Admin: 01/25/19 11:17 Dose: 40 mg Hydrochlorothiazide (Microzide) 12.5 mg PO DAILY [facility] Last Admin: 01/25/19 11:15 Dose: 12.5 mg Lactic Acid (Lac-Hydrin 12% Lotion (225 G)) 0 gm EXT DAILY [facility] Last Admin: 01/25/19 11:17 Dose: 1 appl Lisinopril (Zestril) 40 mg PO DAILY [facility] Last Admin: 01/22/19 10:01 Dose: 40 mg Metoprolol Succinate (Toprol Xl) 25 mg PO DAILY [facility] Last Admin: 01/25/19 11:15 Dose: 25 mg Pantoprazole Sodium (Protonix Ec Tab) 40 mg PO DAILY [facility] Last Admin: 01/25/19 11:14 Dose: 40 mg Risperidone (Risperdal Tab) 1 mg PO DAILY [facility] Last Admin: 01/25/19 11:15 Dose: 1 mg Rosuvastatin Calcium (Crestor) 5 mg PO HS [facility] Last Admin: 01/24/19 22:03 Dose: 5 mg Saccharomyces Boulardii (Florastor) 250 mg PO BID [facility] Last Admin: 01/25/19 17:37 Dose: 250 mg Silver Sulfadiazine (Silvadene 1% 20 Gm) 0 ea TOP DAILY [facility] Last Admin: 01/25/19 11:18 Dose: 1 applic - Labs Labs: 01/25/19 07:53 01/25/19 07:53 PT 12.5 SECONDS (9.7-12.2) H 01/18/19 10:46 INR 1.1 01/18/19 10:46 APTT 35 SECONDS (21-34) H 01/18/19 10:46 - Constitutional Appears: Non-toxic, Confused, Chronically Ill - Head Exam Head Exam: ATRAUMATIC, NORMAL INSPECTION, NORMOCEPHALIC - Eye Exam Eye Exam: EOMI, Normal appearance, PERRL Pupil Exam: NORMAL ACCOMODATION, PERRL - ENT Exam ENT Exam: Mucous Membranes Moist, Normal Exam - Neck Exam Neck Exam: Full ROM, Normal Inspection. absent: Lymphadenopathy - Respiratory Exam Respiratory Exam: Clear to Ausculation Bilateral, NORMAL BREATHING PATTERN - Cardiovascular Exam Cardiovascular Exam: REGULAR RHYTHM, +S1, +S2. absent: Murmur - GI/Abdominal Exam GI & Abdominal Exam: Soft, Normal Bowel Sounds. absent: Tenderness - Rectal Exam Rectal Exam: Deferred - Extremities Exam Extremities Exam: Full ROM, Normal Capillary Refill, Normal Inspection. absent: Joint Swelling, Pedal Edema - Back Exam Back Exam: NORMAL INSPECTION - Neurological Exam Neurological Exam: Alert, Altered, Awake, CN II-XII Intact. absent: Normal Gait, Oriented x3 - Psychiatric Exam Psychiatric exam: Normal Affect, Normal Mood - Skin Skin Exam: Dry, Intact, Normal Color, Warm Assessment and Plan - Assessment and Plan (Free Text) Assessment: await LP to r/o SHELL MOLD BONDER syphilis low titer favors sero-fast status
--- NOTE | 2019-01-26 05:33 | CP.PCM.PN ---
Subjective - Date & Time of Evaluation Date of Evaluation: 01/26/19 Time of Evaluation: 05:28 - Subjective Subjective: PGY-1 Medicine Progress Note for Dr. Mercer Patient seen and examined at bedside this AM. No acute overnight events reported. No fevers/chills, chest pain, palpitations, sob, abdominal pain, n/v/d/c. No other acute somatic complaints. Objective - Vital Signs/Intake and Output Vital Signs (last 24 hours): Temp Pulse Resp BP Pulse Ox 98.5 F 65 20 103/58 L 96 01/25/19 23:45 01/25/19 23:45 01/25/19 23:45 01/25/19 23:45 01/25/19 23:45 Intake and Output: 01/25/19 01/26/19 18:59 06:59 Intake Total 600 Output Total 400 Balance 200 - Medications Medications: Current Medications Acetaminophen (Tylenol 325mg Tab) 650 mg PO Q6 PRN PRN Reason: Pain, Mild (1-3) Aspirin (Ecotrin) 81 mg PO DAILY [facility] Last Admin: 01/25/19 11:15 Dose: 81 mg Enoxaparin Sodium (Lovenox) 40 mg SC DAILY [facility] Last Admin: 01/25/19 11:17 Dose: 40 mg Hydrochlorothiazide (Microzide) 12.5 mg PO DAILY [facility] Last Admin: 01/25/19 11:15 Dose: 12.5 mg Lactic Acid (Lac-Hydrin 12% Lotion (225 G)) 0 gm EXT DAILY [facility] Last Admin: 01/25/19 11:17 Dose: 1 appl Lisinopril (Zestril) 40 mg PO DAILY [facility] Last Admin: 01/22/19 10:01 Dose: 40 mg Metoprolol Succinate (Toprol Xl) 25 mg PO DAILY [facility] Last Admin: 01/25/19 11:15 Dose: 25 mg Pantoprazole Sodium (Protonix Ec Tab) 40 mg PO DAILY [facility] Last Admin: 01/25/19 11:14 Dose: 40 mg Risperidone (Risperdal Tab) 1 mg PO DAILY [facility] Last Admin: 01/25/19 11:15 Dose: 1 mg Rosuvastatin Calcium (Crestor) 5 mg PO HS [facility] Last Admin: 01/25/19 21:32 Dose: Not Given Saccharomyces Boulardii (Florastor) 250 mg PO BID [facility] Last Admin: 01/25/19 17:37 Dose: 250 mg Silver Sulfadiazine (Silvadene 1% 20 Gm) 0 ea TOP DAILY [facility] Last Admin: 01/25/19 11:18 Dose: 1 applic - Labs Labs: 01/25/19 07:53 01/25/19 07:53 PT 12.5 SECONDS (9.7-12.2) H 01/18/19 10:46 INR 1.1 01/18/19 10:46 APTT 35 SECONDS (21-34) H 01/18/19 10:46 - Constitutional Appears: Non-toxic, No Acute Distress - Head Exam Head Exam: ATRAUMATIC, NORMAL INSPECTION, NORMOCEPHALIC - Eye Exam Eye Exam: EOMI, Normal appearance Pupil Exam: NORMAL ACCOMODATION - ENT Exam ENT Exam: Mucous Membranes Moist, Normal Exam - Neck Exam Neck Exam: Full ROM, Normal Inspection - Respiratory Exam Respiratory Exam: Clear to Ausculation Bilateral, NORMAL BREATHING PATTERN. absent: Accessory Muscle Use, Rales, Rhonchi, Wheezes, Respiratory Distress - Cardiovascular Exam Cardiovascular Exam: REGULAR RHYTHM, +S1, +S2 - GI/Abdominal Exam GI & Abdominal Exam: Soft, Normal Bowel Sounds. absent: Distended, Firm, Guarding, Rigid, Tenderness, Rebound - Extremities Exam Additional comments: Chronic venous stasis noted L> R Left anterior tibial ulcer noted, some drainage, non-malodorous, skin is dry and scaly (improving) Left lower extremity dressed in patrick bandage - Neurological Exam Neurological Exam: Alert, Awake, Oriented x3 - Skin Skin Exam: Dry, Intact, Normal Color, Warm Assessment and Plan - Assessment and Plan (Free Text) Assessment: 88 year old with PMHx of Hypertension, Hyperlipidemia, CAD with 4 stents, Anem ia, Chronic Venous Stasis with Chronic Tibial Ulcer and Dementia who presents to the ED with left lower leg pain and drainage from leg wound. RPR and FTA-abs positive, LP could not be completed. Plan: Chronic Venous Stasis Dermatitis -Venous Doppler - negative for DVT -Antibiotics: Vancomycin 1 gram daily, Zosyn Q6H IVPB; will dc IV abx in AM as patient skin very scaly and breakdown is noticeable -Wound cultures growing staph aureus and raoultella ornithinolytica; likely skin contaminated -Wound care per Dr Mercer - Silvadene to be applied from the knee down and Lachydrin -Podiatry on consult, help appreciated Dementia vs Syphilis -RPR positive -FTA-Abs minimally reactive -Risperidone 1mg po daily -ID consulted: Dr. Reyes- recs appreciated -Neurology Consulted: Dr. Ortega- LP could not be completed Hypertension -Aspirin 81 mg PO daily -Lisinopril 40 mg PO daily, -HCTZ 12.5mg PO daily -Metoprolol tartrate 25 mg PO daily Hyperlipidemia -Crestor 5mg PO QHS History of CAD with 4 stents -Aspirin 81 mg PO daily -Lisinopril 40 mg PO daily -HCTZ 12.5mg PO daily -Metoprolol tartrate 25 mg PO daily -Crestor 5mg PO QHS Anemia -Iron 31, TIBC 260, %saturation 12 -Patient will need outpatient GI workup Microscopic hematuria -UA on admission showing +2 blood and RBCs -Repeat UA +1 blood; less hgb -Cr stable -Hgb stable PPx, Diet, Disposition -DVT ppx: Lovenox -GI ppx: protonix florastor BID -Diet: HHD Son's name is Sahnnan Espana, contact [phone] Disposition: Family refused GILBERTO; LP could not be completed due to arthritic c hanges; pending ID eval Further recs as per Dr. Ruslan Mcnair DO, PGY-1
[2019-01-26 06:54] LABS: EOS # 0.8 K/uL (0.0-0.7); EOS % 18.4 % (0.0-4.0); HEMOGLOBIN 10.5 g/dL (12.0-18.0); LYMPH # 1.2 K/uL (1.0-4.3); LYMPH % 28.9 % (20.0-40.0); MEAN CELL VOLUME 80.2 fL (80.0-94.0); MEAN CORPUSCULAR HEMOGLOBIN 26.3 pg (27.0-31.0); MEAN CORPUSCULAR HGB CONC 32.8 g/dL (33.0-37.0); MEAN PLATELET VOLUME 7.6 fL (7.2-11.7); MONO # 0.5 K/uL (0.0-0.8); MONO % 12.2 % (0.0-10.0); NEUT # 1.7 K/uL (1.8-7.0); NEUT % 39.5 % (50.0-75.0); NRBC % 0.1 % (0.0-2.0); RBC 4.01 Mil/uL (4.40-5.90); RED CELL DISTRIBUTION WIDTH 15.6 % (11.5-14.5); WHITE BLOOD COUNT 4.2 K/uL (4.8-10.8)
[2019-01-26 07:03] LABS: ALBUMIN 3.5 g/dL (3.5-5.0); ALT/SGPT 8 U/L (21-72); AST/SGOT 33 U/L (17-59); BLOOD UREA NITROGEN 22 mg/dL (9-20); CALCIUM 9.2 mg/dl (8.6-10.4); GFR NON-AFRICAN AMERICAN 57
[2019-01-26] MEDS: Saccharomyces Boulardi 250 mg Cap PO SCH ×2 (09:26→17:09)
[2019-01-26] MEDS: Pantoprazole 40 mg EC Tab PO SCH (09:26)
[2019-01-26] MEDS: Enoxaparin 40 mg Syringe SC SCH (09:26)
[2019-01-26] MEDS: Metoprolol Succinate 25 mg XL Tab PO SCH (09:26)
[2019-01-26] MEDS: Ammonium Lactate 12% Lotion (225 g) EXT SCH (10:55)
[2019-01-26] MEDS: Silver Sulfadiazine 1% Cream (20 gm) TOP SCH (10:55)
--- NOTE | 2019-01-27 00:15 | CP.PCM.PN ---
Subjective - Date & Time of Evaluation Date of Evaluation: 01/27/19 Time of Evaluation: 00:13 - Subjective Subjective: PGY-1 Medicine Progress Note for Dr. Mercer Patient seen and examined at bedside this AM. No acute overnight events reported, no acute somatic complaints. Denies fevers/chills, chest pain, palpitations, sob, abdominal pain, n/v/d/c. Objective - Vital Signs/Intake and Output Vital Signs (last 24 hours): Temp Pulse Resp BP Pulse Ox 98.1 F 67 20 126/63 96 01/26/19 23:00 01/26/19 23:00 01/26/19 23:00 01/26/19 23:00 01/26/19 23:00 Intake and Output: 01/26/19 01/27/19 18:59 06:59 Intake Total 100 Balance 100 - Medications Medications: Current Medications Acetaminophen (Tylenol 325mg Tab) 650 mg PO Q6 PRN PRN Reason: Pain, Mild (1-3) Aspirin (Ecotrin) 81 mg PO DAILY [facility] Last Admin: 01/26/19 09:25 Dose: 81 mg Enoxaparin Sodium (Lovenox) 40 mg SC DAILY [facility] Last Admin: 01/26/19 09:26 Dose: 40 mg Hydrochlorothiazide (Microzide) 12.5 mg PO DAILY [facility] Last Admin: 01/26/19 09:25 Dose: 12.5 mg Lactic Acid (Lac-Hydrin 12% Lotion (225 G)) 0 gm EXT DAILY [facility] Last Admin: 01/26/19 10:55 Dose: 1 appl Lisinopril (Zestril) 40 mg PO DAILY [facility] Last Admin: 01/26/19 09:26 Dose: 40 mg Metoprolol Succinate (Toprol Xl) 25 mg PO DAILY [facility] Last Admin: 01/26/19 09:26 Dose: 25 mg Pantoprazole Sodium (Protonix Ec Tab) 40 mg PO DAILY [facility] Last Admin: 01/26/19 09:26 Dose: 40 mg Risperidone (Risperdal Tab) 1 mg PO DAILY [facility] Last Admin: 01/26/19 09:26 Dose: 1 mg Rosuvastatin Calcium (Crestor) 5 mg PO HS [facility] Last Admin: 01/26/19 21:58 Dose: Not Given Saccharomyces Boulardii (Florastor) 250 mg PO BID [facility] Last Admin: 01/26/19 17:09 Dose: 250 mg Silver Sulfadiazine (Silvadene 1% 20 Gm) 0 ea TOP DAILY [facility] Last Admin: 01/26/19 10:55 Dose: 1 applic - Labs Labs: 01/26/19 06:42 01/26/19 06:42 PT 12.5 SECONDS (9.7-12.2) H 01/18/19 10:46 INR 1.1 01/18/19 10:46 APTT 35 SECONDS (21-34) H 01/18/19 10:46 - Constitutional Appears: Non-toxic, No Acute Distress - Head Exam Head Exam: ATRAUMATIC, NORMAL INSPECTION, NORMOCEPHALIC - Eye Exam Eye Exam: EOMI, Normal appearance Pupil Exam: NORMAL ACCOMODATION - ENT Exam ENT Exam: Mucous Membranes Moist, Normal Exam - Neck Exam Neck Exam: Full ROM, Normal Inspection - Respiratory Exam Respiratory Exam: Clear to Ausculation Bilateral, NORMAL BREATHING PATTERN. absent: Accessory Muscle Use, Rales, Rhonchi, Wheezes, Respiratory Distress, Stridor - Cardiovascular Exam Cardiovascular Exam: REGULAR RHYTHM, +S1, +S2 - GI/Abdominal Exam GI & Abdominal Exam: Soft, Normal Bowel Sounds. absent: Distended, Firm, Guarding, Rigid, Tenderness, Rebound - Extremities Exam Additional comments: Chronic venous stasis noted L> R Left anterior tibial ulcer noted, some drainage, non-malodorous, skin is dry and scaly (improving) Left lower extremity dressed in patrick bandage - Back Exam Back Exam: NORMAL INSPECTION - Neurological Exam Neurological Exam: Alert, Awake, Oriented x3 - Skin Skin Exam: Dry, Intact, Normal Color, Warm Assessment and Plan - Assessment and Plan (Free Text) Assessment: 88 year old with PMHx of Hypertension, Hyperlipidemia, CAD with 4 stents, Anemia, Chronic Venous Stasis with Chronic Tibial Ulcer and Dementia who presents to the ED with left lower leg pain and drainage from leg wound. RPR and FTA-abs positive, LP could not be completed. Plan: Chronic Venous Stasis Dermatitis -Venous Doppler - negative for DVT -Antibiotics: Vancomycin 1 gram daily, Zosyn Q6H IVPB; will dc IV abx in AM as patient skin very scaly and breakdown is noticeable -Wound cultures growing staph aureus and raoultella ornithinolytica; likely skin contaminated -Wound care per Dr Ruslan Shipman to be applied from the knee down and Lachydrin -Podiatry on consult, help appreciated Dementia vs Syphilis -RPR positive -FTA-Abs minimally reactive -Risperidone 1mg po daily -ID consulted: Dr. Reyes- recs appreciated -Neurology Consulted: Dr. Ortega- LP could not be completed Hypertension -Aspirin 81 mg PO daily -Lisinopril 40 mg PO daily, -HCTZ 12.5mg PO daily -Metoprolol tartrate 25 mg PO daily Hyperlipidemia -Crestor 5mg PO QHS History of CAD with 4 stents -Aspirin 81 mg PO daily -Lisinopril 40 mg PO daily -HCTZ 12.5mg PO daily -Metoprolol tartrate 25 mg PO daily -Crestor 5mg PO QHS Anemia -Iron 31, TIBC 260, %saturation 12 -Patient will need outpatient GI workup Microscopic hematuria -UA on admission showing +2 blood and RBCs -Repeat UA +1 blood; less hgb -Cr stable -Hgb stable PPx, Diet, Disposition -DVT ppx: Lovenox -GI ppx: protonix florastor BID -Diet: HHD Son's name is Shannan Espana, contact [phone] Disposition: Family refused GILBERTO; LP could not be completed due to arthritic changes; pending ID eval Further recs as per Dr. Ruslan Mcnair DO, PGY-1
[2019-01-27 09:05] LABS: BASO % 0.6 % (0.0-2.0); EOS # 0.6 K/uL (0.0-0.7); EOS % 13.6 % (0.0-4.0); LYMPH # 1.5 K/uL (1.0-4.3); LYMPH % 32.1 % (20.0-40.0); MEAN CORPUSCULAR HEMOGLOBIN 26.6 pg (27.0-31.0); MEAN CORPUSCULAR HGB CONC 32.8 g/dL (33.0-37.0); MEAN PLATELET VOLUME 7.8 fL (7.2-11.7); MONO # 0.5 K/uL (0.0-0.8); MONO % 10.5 % (0.0-10.0); NEUT % 43.2 % (50.0-75.0); RBC 4.12 Mil/uL (4.40-5.90); RED CELL DISTRIBUTION WIDTH 15.6 % (11.5-14.5); WHITE BLOOD COUNT 4.5 K/uL (4.8-10.8)
[2019-01-27 09:39] LABS: ALBUMIN 3.6 g/dL (3.5-5.0); ALT/SGPT 10 U/L (21-72); AST/SGOT 20 U/L (17-59); BLOOD UREA NITROGEN 27 mg/dL (9-20); CALCIUM 9.4 mg/dl (8.6-10.4); GFR NON-AFRICAN AMERICAN 52
[2019-01-27] MEDS: Saccharomyces Boulardi 250 mg Cap PO SCH ×2 (10:00→18:16)
[2019-01-27] MEDS: Metoprolol Succinate 25 mg XL Tab PO SCH (10:00)
[2019-01-27] MEDS: Pantoprazole 40 mg EC Tab PO SCH (10:00)
[2019-01-27] MEDS: Silver Sulfadiazine 1% Cream (20 gm) TOP SCH (10:01)
[2019-01-27] MEDS: Enoxaparin 40 mg Syringe SC SCH (10:01)
[2019-01-27] MEDS: Ammonium Lactate 12% Lotion (225 g) EXT SCH (10:01)
--- NOTE | 2019-01-27 16:02 | CP.PCM.PN ---
Subjective - Date & Time of Evaluation Date of Evaluation: 01/27/19 Time of Evaluation: 09:00 - Subjective Subjective: chart reviewed patient examined no new complaints orders signed Objective - Vital Signs/Intake and Output Vital Signs (last 24 hours): Temp Pulse Resp BP Pulse Ox 97.9 F 70 20 125/72 95 01/27/19 07:00 01/27/19 07:00 01/27/19 07:00 01/27/19 07:00 01/27/19 07:00 - Medications Medications: Current Medications Acetaminophen (Tylenol 325mg Tab) 650 mg PO Q6 PRN PRN Reason: Pain, Mild (1-3) Aspirin (Ecotrin) 81 mg PO DAILY [facility] Last Admin: 01/27/19 10:00 Dose: 81 mg Enoxaparin Sodium (Lovenox) 40 mg SC DAILY [facility] Last Admin: 01/27/19 10:01 Dose: 40 mg Hydrochlorothiazide (Microzide) 12.5 mg PO DAILY [facility] Last Admin: 01/27/19 12:52 Dose: 12.5 mg Lactic Acid (Lac-Hydrin 12% Lotion (225 G)) 0 gm EXT DAILY [facility] Last Admin: 01/27/19 10:01 Dose: 1 appl Lisinopril (Zestril) 40 mg PO DAILY [facility] Last Admin: 01/27/19 10:01 Dose: 40 mg Metoprolol Succinate (Toprol Xl) 25 mg PO DAILY [facility] Last Admin: 01/27/19 10:00 Dose: 25 mg Pantoprazole Sodium (Protonix Ec Tab) 40 mg PO DAILY [facility] Last Admin: 01/27/19 10:00 Dose: 40 mg Risperidone (Risperdal Tab) 1 mg PO DAILY [facility] Last Admin: 01/27/19 10:01 Dose: 1 mg Rosuvastatin Calcium (Crestor) 5 mg PO HS [facility] Last Admin: 01/26/19 21:58 Dose: Not Given Saccharomyces Boulardii (Florastor) 250 mg PO BID [facility] Last Admin: 01/27/19 10:00 Dose: 250 mg Silver Sulfadiazine (Silvadene 1% 20 Gm) 0 ea TOP DAILY [facility] Last Admin: 01/27/19 10:01 Dose: 1 applic - Labs Labs: 01/27/19 08:52 01/27/19 08:52 PT 12.5 SECONDS (9.7-12.2) H 01/18/19 10:46 INR 1.1 01/18/19 10:46 APTT 35 SECONDS (21-34) H 01/18/19 10:46 - Constitutional Appears: Non-toxic, Cachectic, Chronically Ill - Head Exam Head Exam: ATRAUMATIC, NORMAL INSPECTION, NORMOCEPHALIC - Eye Exam Eye Exam: EOMI, Normal appearance, PERRL Pupil Exam: NORMAL ACCOMODATION, PERRL - ENT Exam ENT Exam: Mucous Membranes Moist, Normal Exam - Neck Exam Neck Exam: Full ROM, Normal Inspection. absent: Lymphadenopathy - Respiratory Exam Respiratory Exam: Clear to Ausculation Bilateral, NORMAL BREATHING PATTERN - Cardiovascular Exam Cardiovascular Exam: REGULAR RHYTHM, +S1, +S2. absent: Murmur - GI/Abdominal Exam GI & Abdominal Exam: Soft, Normal Bowel Sounds. absent: Tenderness - Rectal Exam Rectal Exam: Deferred - Exam Exam: NORMAL INSPECTION - Extremities Exam Extremities Exam: Full ROM, Normal Capillary Refill, Normal Inspection. absent: Joint Swelling, Pedal Edema - Back Exam Back Exam: NORMAL INSPECTION - Neurological Exam Neurological Exam: Alert, Awake, CN II-XII Intact, Normal Gait, Oriented x3 - Psychiatric Exam Psychiatric exam: Normal Affect, Normal Mood - Skin Skin Exam: Dry, Intact, Normal Color, Warm Assessment and Plan - Assessment and Plan (Free Text) Assessment: + RPR likely sero fast await LP conmt rx as ordered
--- NOTE | 2019-01-28 07:33 | CP.PCM.PN ---
Subjective - Date & Time of Evaluation Date of Evaluation: 01/28/19 Time of Evaluation: 07:27 - Subjective Subjective: Medicine Progress Note for Dr. Mercer's service S/E at bedside. Offers no complaints at bedside. Pending LP with anasthesiology team. Denies fevers/chills, cp, sob, n/v, constipation or diarrhea, and dysuria. Objective - Vital Signs/Intake and Output Vital Signs (last 24 hours): Temp Pulse Resp BP Pulse Ox 98.1 F 86 20 116/53 L 96 01/28/19 00:50 01/28/19 00:50 01/28/19 00:50 01/28/19 00:50 01/28/19 00:50 Intake and Output: 01/28/19 01/28/19 06:59 18:59 Intake Total 740 Output Total 800 Balance -60 - Medications Medications: Current Medications Acetaminophen (Tylenol 325mg Tab) 650 mg PO Q6 PRN PRN Reason: Pain, Mild (1-3) Aspirin (Ecotrin) 81 mg PO DAILY [facility] Last Admin: 01/27/19 10:00 Dose: 81 mg Enoxaparin Sodium (Lovenox) 40 mg SC DAILY [facility] Last Admin: 01/27/19 10:01 Dose: 40 mg Hydrochlorothiazide (Microzide) 12.5 mg PO DAILY [facility] Last Admin: 01/27/19 12:52 Dose: 12.5 mg Lactic Acid (Lac-Hydrin 12% Lotion (225 G)) 0 gm EXT DAILY [facility] Last Admin: 01/27/19 10:01 Dose: 1 appl Lisinopril (Zestril) 40 mg PO DAILY [facility] Last Admin: 01/27/19 10:01 Dose: 40 mg Metoprolol Succinate (Toprol Xl) 25 mg PO DAILY [facility] Last Admin: 01/27/19 10:00 Dose: 25 mg Pantoprazole Sodium (Protonix Ec Tab) 40 mg PO DAILY [facility] Last Admin: 01/27/19 10:00 Dose: 40 mg Risperidone (Risperdal Tab) 1 mg PO DAILY [facility] Last Admin: 01/27/19 10:01 Dose: 1 mg Rosuvastatin Calcium (Crestor) 5 mg PO HS [facility] Last Admin: 01/27/19 21:49 Dose: 5 mg Saccharomyces Boulardii (Florastor) 250 mg PO BID [facility] Last Admin: 01/27/19 18:16 Dose: 250 mg Silver Sulfadiazine (Silvadene 1% 20 Gm) 0 ea TOP DAILY [facility] Last Admin: 01/27/19 10:01 Dose: 1 applic - Labs Labs: 01/27/19 08:52 01/27/19 08:52 PT 12.5 SECONDS (9.7-12.2) H 01/18/19 10:46 INR 1.1 01/18/19 10:46 APTT 35 SECONDS (21-34) H 01/18/19 10:46 - Additional Findings Additional findings: - Constitutional Appears: Non-toxic, No Acute Distress - Head Exam Head Exam: ATRAUMATIC, NORMAL INSPECTION, NORMOCEPHALIC - Eye Exam Eye Exam: EOMI, Normal appearance Pupil Exam: NORMAL ACCOMODATION - ENT Exam ENT Exam: Mucous Membranes Moist, Normal Exam - Neck Exam Neck Exam: Full ROM, Normal Inspection - Respiratory Exam Respiratory Exam: Clear to Ausculation Bilateral, NORMAL BREATHING PATTERN. absent: Accessory Muscle Use, Rales, Rhonchi, Wheezes, Respiratory Distress, Stridor - Cardiovascular Exam Cardiovascular Exam: REGULAR RHYTHM, +S1, +S2 - GI/Abdominal Exam GI & Abdominal Exam: Soft, Normal Bowel Sounds. absent: Distended, Firm, Guarding, Rigid, Tenderness, Rebound - Extremities Exam Additional comments: Chronic venous stasis noted L> R Left anterior tibial ulcer noted, some drainage, non-malodorous, skin is dry and scaly (improving) Left lower extremity dressed in patrick bandage - Back Exam Back Exam: NORMAL INSPECTION - Neurological Exam Neurological Exam: Alert, Awake, Oriented x3 - Skin Skin Exam: Dry, Intact, Normal Color, Warm Assessment and Plan - Assessment and Plan (Free Text) Assessment: 88 year old with PMHx of Hypertension, Hyperlipidemia, CAD with 4 stents, Anemia, Chronic Venous Stasis with Chronic Tibial Ulcer and Dementia who presents to the ED with left lower leg pain and drainage from leg wound. RPR and FTA-abs positive, LP could not be completed. Plan: Chronic Venous Stasis Dermatitis -Venous Doppler - negative for DVT -Wound cultures growing staph aureus and raoultella ornithinolytica; likely skin contaminated -Wound care per Dr Ruslan Shipman to be applied from the knee down and Lachydrin -Podiatry on consult, help appreciated Dementia vs Syphilis -RPR positive -FTA-Abs minimally reactive -Risperidone 1mg po daily -ID consulted: Dr. Reyes- recs appreciated -Neurology Consulted: Dr. Ortega- LP could not be completed Hypertension -Aspirin 81 mg PO daily -Lisinopril 40 mg PO daily, -HCTZ 12.5mg PO daily -Metoprolol tartrate 25 mg PO daily Hyperlipidemia -Crestor 5mg PO QHS History of CAD with 4 stents -Aspirin 81 mg PO daily -Lisinopril 40 mg PO daily -HCTZ 12.5mg PO daily -Metoprolol tartrate 25 mg PO daily -Crestor 5mg PO QHS Anemia -Iron 31, TIBC 260, %saturation 12 -Patient will need outpatient GI workup Microscopic hematuria -UA on admission showing +2 blood and RBCs -Repeat UA +1 blood; less hgb -Cr stable -Hgb stable PPx, Diet, Disposition -DVT ppx: Lovenox -GI ppx: protonix florastor BID -Diet: HHD Son's name is Shannan Espana, contact [phone] Disposition: LP with anesthesiology team pending today Further recs as per Dr. Ruslan Morejon DO, PGY-1
[2019-01-28 07:54] LABS: INR 1.2; PROTHROMBIN TIME 12.7 SECONDS (9.7-12.2)
[2019-01-28 08:00] LABS: BASO % 0.7 % (0.0-2.0); EOS # 0.7 K/uL (0.0-0.7); EOS % 13.4 % (0.0-4.0); HEMOGLOBIN 10.6 g/dL (12.0-18.0); LYMPH # 1.3 K/uL (1.0-4.3); LYMPH % 26.5 % (20.0-40.0); MEAN CELL VOLUME 80.1 fL (80.0-94.0); MEAN CORPUSCULAR HEMOGLOBIN 26.6 pg (27.0-31.0); MEAN CORPUSCULAR HGB CONC 33.2 g/dL (33.0-37.0); MEAN PLATELET VOLUME 7.9 fL (7.2-11.7); MONO # 0.5 K/uL (0.0-0.8); MONO % 10.5 % (0.0-10.0); NEUT # 2.4 K/uL (1.8-7.0); NEUT % 48.9 % (50.0-75.0); NRBC % 0.1 % (0.0-2.0); RBC 3.97 Mil/uL (4.40-5.90); RED CELL DISTRIBUTION WIDTH 16.3 % (11.5-14.5); WHITE BLOOD COUNT 4.9 K/uL (4.8-10.8)
[2019-01-28 08:10] LABS: ALB/GLOB RATIO 1.1 (1.0-2.1); ALBUMIN 3.6 g/dL (3.5-5.0); ALT/SGPT 12 U/L (21-72); AST/SGOT 32 U/L (17-59); BLOOD UREA NITROGEN 27 mg/dL (9-20); CALCIUM 9.1 mg/dl (8.6-10.4); GFR NON-AFRICAN AMERICAN 57
[2019-01-28] MEDS: Saccharomyces Boulardi 250 mg Cap PO SCH ×2 (11:47→22:03)
[2019-01-28] MEDS: Enoxaparin 40 mg Syringe SC SCH (11:48)
[2019-01-28] MEDS: Silver Sulfadiazine 1% Cream (20 gm) TOP SCH (11:48)
[2019-01-28] MEDS: Pantoprazole 40 mg EC Tab PO SCH (11:48)
[2019-01-28] MEDS: Ammonium Lactate 12% Lotion (225 g) EXT SCH (11:48)
[2019-01-28] MEDS: Metoprolol Succinate 25 mg XL Tab PO SCH (11:49)
--- NOTE | 2019-01-28 14:59 | CP.PCM.PN ---
Subjective - Date & Time of Evaluation Date of Evaluation: 01/28/19 Time of Evaluation: 14:56 - Subjective Subjective: Neuro Follow-Up Note: Mr. Paulson was evaluated this afternoon at bedside. He was asleep but is easily arousable to voice. Pt denies any complaints today. He states that he is feeling well. He is forgetful, though calm and cooperative; at his baseline dementia. Denies h/a, dizziness, visual changes, chest pain, sob, cough, abd pa in, n/v/d, fever/chills, paresthesias. Objective - Vital Signs/Intake and Output Vital Signs (last 24 hours): Temp Pulse Resp BP Pulse Ox 98 F 85 20 139/65 96 01/28/19 08:00 01/28/19 08:00 01/28/19 08:00 01/28/19 08:00 01/28/19 08:00 Intake and Output: 01/28/19 01/28/19 06:59 18:59 Intake Total 740 Output Total 800 Balance -60 - Medications Medications: Current Medications Acetaminophen (Tylenol 325mg Tab) 650 mg PO Q6 PRN PRN Reason: Pain, Mild (1-3) Aspirin (Ecotrin) 81 mg PO DAILY [facility] Last Admin: 01/28/19 11:47 Dose: 81 mg Enoxaparin Sodium (Lovenox) 40 mg SC DAILY [facility] Last Admin: 01/28/19 11:48 Dose: Not Given Hydrochlorothiazide (Microzide) 12.5 mg PO DAILY [facility] Last Admin: 01/28/19 11:48 Dose: 12.5 mg Lactic Acid (Lac-Hydrin 12% Lotion (225 G)) 0 gm EXT DAILY [facility] Last Admin: 01/28/19 11:48 Dose: 1 appl Lisinopril (Zestril) 40 mg PO DAILY [facility] Last Admin: 01/28/19 11:49 Dose: 40 mg Metoprolol Succinate (Toprol Xl) 25 mg PO DAILY [facility] Last Admin: 01/28/19 11:49 Dose: 25 mg Pantoprazole Sodium (Protonix Ec Tab) 40 mg PO DAILY [facility] Last Admin: 01/28/19 11:48 Dose: 40 mg Risperidone (Risperdal Tab) 1 mg PO DAILY [facility] Last Admin: 01/28/19 11:48 Dose: 1 mg Rosuvastatin Calcium (Crestor) 5 mg PO HS [facility] Last Admin: 01/27/19 21:49 Dose: 5 mg Saccharomyces Boulardii (Florastor) 250 mg PO BID [facility] Last Admin: 01/28/19 11:47 Dose: 250 mg Silver Sulfadiazine (Silvadene 1% 20 Gm) 0 ea TOP DAILY [facility] Last Admin: 01/28/19 11:48 Dose: 1 applic - Labs Labs: 01/28/19 07:40 01/28/19 07:40 PT 12.7 SECONDS (9.7-12.2) H 01/28/19 07:40 INR 1.2 01/28/19 07:40 APTT 35 SECONDS (21-34) H 01/18/19 10:46 - Constitutional Appears: Well, Non-toxic, No Acute Distress - Head Exam Head Exam: ATRAUMATIC, NORMAL INSPECTION, NORMOCEPHALIC - Eye Exam Eye Exam: EOMI, Normal appearance, PERRL Pupil Exam: NORMAL ACCOMODATION, PERRL - ENT Exam ENT Exam: Mucous Membranes Moist - Neck Exam Neck Exam: Full ROM, Normal Inspection - Respiratory Exam Respiratory Exam: NORMAL BREATHING PATTERN - Extremities Exam Extremities Exam: Full ROM. absent: Calf Tenderness, Pedal Edema - Neurological Exam Neurological Exam: Alert, Altered, Awake, CN II-XII Intact, Reflexes Normal Neuro motor strength exam: Left Upper Extremity: 4, Right Upper Extremity: 4, Left Lower Extremity: 4, Right Lower Extremity: 4 Additional comments: Speech clear, fluid Cooperative, calm; baseline dementia No focal motor or sensory deficits No tremors or abnormal movements - Psychiatric Exam Psychiatric exam: Normal Mood Additional comments: forgetful; calm, cooperative; at baseline dementia Assessment and Plan (1) Encephalopathy Assessment & Plan: -Likely related to dementia, though we are ruling out neurosyphilis. -Still pending LP through radiology. -Continue current treatment. -Continue PT -Notify neuro team of any acute changes in pt's condition. Mayra Rodriguez, HARISH, BOOKMAK[employer] MAP D/W Dr. Ortega Status: Acute
[2019-01-29 08:23] LABS: BASO % 0.9 % (0.0-2.0); EOS # 0.5 K/uL (0.0-0.7); EOS % 12.7 % (0.0-4.0); HEMOGLOBIN 10.8 g/dL (12.0-18.0); LYMPH # 1.2 K/uL (1.0-4.3); LYMPH % 28.9 % (20.0-40.0); MEAN CELL VOLUME 79.8 fL (80.0-94.0); MEAN CORPUSCULAR HEMOGLOBIN 26.3 pg (27.0-31.0); MEAN CORPUSCULAR HGB CONC 32.9 g/dL (33.0-37.0); MEAN PLATELET VOLUME 7.9 fL (7.2-11.7); MONO # 0.5 K/uL (0.0-0.8); MONO % 11.5 % (0.0-10.0); NEUT # 1.9 K/uL (1.8-7.0); NRBC % 0.1 % (0.0-2.0); RBC 4.1 Mil/uL (4.40-5.90); RED CELL DISTRIBUTION WIDTH 15.6 % (11.5-14.5); WHITE BLOOD COUNT 4.1 K/uL (4.8-10.8)
[2019-01-29 08:38] LABS: ALB/GLOB RATIO 1.1 (1.0-2.1); ALBUMIN 3.6 g/dL (3.5-5.0); ALT/SGPT 16 U/L (21-72); AST/SGOT 26 U/L (17-59); BLOOD UREA NITROGEN 27 mg/dL (9-20); CALCIUM 9.1 mg/dl (8.6-10.4); GFR NON-AFRICAN AMERICAN 57
[2019-01-29] MEDS: Saccharomyces Boulardi 250 mg Cap PO SCH ×2 (10:34→19:00)
[2019-01-29] MEDS: Metoprolol Succinate 25 mg XL Tab PO SCH (10:34)
[2019-01-29] MEDS: Pantoprazole 40 mg EC Tab PO SCH (10:35)
[2019-01-29] MEDS: Silver Sulfadiazine 1% Cream (20 gm) TOP SCH (10:36)
[2019-01-29] MEDS: Ammonium Lactate 12% Lotion (225 g) EXT SCH (10:36)
[2019-01-29] MEDS: Enoxaparin 40 mg Syringe SC SCH (10:36)
--- NOTE | 2019-01-29 13:21 | CP.PCM.DIS ---
Provider - Provider Date of Admission: 01/18/19 11:18 Attending physician: Gdowin Mercer Jr, MD Consults: 01/18/19 12:59 Nursing Referral for Wound Care Routine Comment: cellulitis LLE Physician Instructions: Reason For Exam: cellulitis LLE 01/18/19 13:28 Wound Care [Nursing Referral for Wound Care] Routine Comment: Physician Instructions: Reason For Exam: chronic venous stasis with left tibial ulcer 01/18/19 14:27 Podiatry Consult Routine Comment: Consulting Provider: Camron Robert Consulting Physician: Camron Robert Reason for Consult: onychomycosis?, toenails need trim 01/22/19 11:41 [employer] [Case Management Referral] Routine Comment: Physician Instructions: [facility] planning, PT recommends [facility] vs home PT Reason For Exam: Reason for Referral: Discharge Planning 01/23/19 10:42 Neurology Consult Routine Comment: Consulting Provider: Tao Ortega Consulting Physician: Tao Ortega Reason for Consult: FTA abs- positive; concern for neurosyphilis, LP? 01/24/19 10:23 Infectious Disease Consult Routine Comment: Consulting Provider: Piyush Reyes Consulting Physician: Piyush Reyes Reason for Consult: neurosyphilis concern; FTA-abs positive 01/25/19 15:56 Physician Consult Routine Comment: Consulting Provider: Fortunato Hernandez Consulting Physician: Fortunato Hernandez Reason for Consult: fluorscopy guided Lumbar puncture Additional Comments: Neurology team failed LP at bedside due to arthritic changes OLEGRebeka Barcenas prefers fluoroscopy guided LP to be done on 01/28/19 01/25/19 18:08 Anesthesiology Consult Routine Comment: Consulting Provider: Leonor Rodriguez Consulting Physician: Leonor Rodriguez Reason for Consult: fluoroscopy-guided LP Time Spent in preparation of Discharge (in minutes): 36 Diagnosis - Discharge Diagnosis (1) Neurosyphilis Status: Acute (2) Altered mental status Status: Acute (3) Dementia Status: Chronic Hospital Course - Lab Results Lab Results: Micro Results 01/18/19 11:23 Blood Blood Culture - Final NO GROWTH AFTER 5 DAYS 01/18/19 11:23 Blood Gram Stain - Final TEST NOT PERFORMED 01/18/19 11:23 Blood Blood Culture - Final NO GROWTH AFTER 5 DAYS 01/18/19 11:23 Blood Gram Stain - Final TEST NOT PERFORMED 01/18/19 11:04 Leg - Left Gram Stain - Final 01/18/19 11:04 Leg - Left Wound Culture - Final Methicillin Resistant S Aureus Raoultella Ornithinolytica 01/18/19 10:46 Urine Random Urine Culture - Final No Growth (<1,000 CFU/ML) Most Recent Lab Values WBC 4.1 K/uL (4.8-10.8) L 01/29/19 07:58 RBC 4.10 Mil/uL (4.40-5.90) L 01/29/19 07:58 Hgb 10.8 g/dL (12.0-18.0) L 01/29/19 07:58 Hct 32.7 % (35.0-51.0) L 01/29/19 07:58 MCV 79.8 fL (80.0-94.0) L 01/29/19 07:58 MCH 26.3 pg (27.0-31.0) L 01/29/19 07:58 MCHC 32.9 g/dL (33.0-37.0) L 01/29/19 07:58 RDW 15.6 % (11.5-14.5) H 01/29/19 07:58 Plt Count 268 K/uL (130-400) 01/29/19 07:58 MPV 7.9 fL (7.2-11.7) 01/29/19 07:58 Neut % (Auto) 46.0 % (50.0-75.0) L 01/29/19 07:58 Lymph % (Auto) 28.9 % (20.0-40.0) 01/29/19 07:58 [place] % (Auto) 11.5 % (0.0-10.0) H 01/29/19 07:58 Eos % (Auto) 12.7 % (0.0-4.0) H 01/29/19 07:58 Baso % (Auto) 0.9 % (0.0-2.0) 01/29/19 07:58 Neut # (Auto) 1.9 K/uL (1.8-7.0) 01/29/19 07:58 Lymph # (Auto) 1.2 K/uL (1.0-4.3) 01/29/19 07:58 [place] # (Auto) 0.5 K/uL (0.0-0.8) 01/29/19 07:58 Eos # (Auto) 0.5 K/uL (0.0-0.7) 01/29/19 07:58 Baso # (Auto) 0.0 K/uL (0.0-0.2) 01/29/19 07:58 Retic Count 0.4 % (0.5-1.5) L 01/19/19 07:16 PT 12.7 SECONDS (9.7-12.2) H 01/28/19 07:40 INR 1.2 01/28/19 07:40 APTT 35 SECONDS (21-34) H 01/18/19 10:46 Sodium 135 mmol/L (132-148) 01/29/19 07:58 Potassium 4.1 mmol/L (3.6-5.2) 01/29/19 07:58 Chloride 104 mmol/L (98-107) 01/29/19 07:58 Carbon Dioxide 27 mmol/L (22-30) 01/29/19 07:58 Anion Gap 8 (10-20) L 01/29/19 07:58 BUN 27 mg/dL (9-20) H 01/29/19 07:58 Creatinine 1.2 mg/dL (0.8-1.5) 01/29/19 07:58 Est GFR ( Amer) > 60 01/29/19 07:58 Est GFR (Non-Af Amer) 57 01/29/19 07:58 POC Glucose (mg/dL) 102 mg/dL (65-110) 01/29/19 06:44 Random Glucose 102 mg/dL (75-110) 01/29/19 07:58 Calcium 9.1 mg/dl (8.6-10.4) 01/29/19 07:58 Phosphorus 3.4 mg/dL (2.5-4.5) 01/29/19 07:58 Magnesium 2.1 mg/dL (1.6-2.3) 01/29/19 07:58 Iron 31 ug/dL (49-181) L 01/19/19 07:16 TIBC 260 ug/dL (250-450) 01/19/19 07:16 % Saturation 12 (20-55) L 01/19/19 07:16 Ferritin 37.9 ng/mL 01/19/19 07:16 Total Bilirubin 0.4 mg/dL (0.2-1.3) 01/29/19 07:58 AST 26 U/L (17-59) 01/29/19 07:58 ALT 16 U/L (21-72) L D 01/29/19 07:58 Alkaline Phosphatase 57 U/L (38-126) 01/29/19 07:58 Total Protein 6.8 g/dL (6.3-8.3) 01/29/19 07:58 Albumin 3.6 g/dL (3.5-5.0) 01/29/19 07:58 Globulin 3.3 gm/dL (2.2-3.9) 01/29/19 07:58 Albumin/Globulin Ratio 1.1 (1.0-2.1) 01/29/19 07:58 Urine Color Straw (YELLOW) 01/19/19 22:00 Urine Clarity Clear (Clear) 01/19/19 22:00 Urine pH 6.0 (5.0-8.0) 01/19/19 22:00 Ur Specific Deposit 1.004 (1.003-1.030) 01/19/19 22:00 Urine Protein Negative mg/dL (NEGATIVE) 01/19/19 22:00 Urine Glucose (UA) Normal mg/dL (Normal) 01/19/19 22:00 Urine Ketones Negative mg/dL (NEGATIVE) 01/19/19 22:00 Urine Blood 1+ (NEGATIVE) H 01/19/19 22:00 Urine Nitrate Negative (NEGATIVE) 01/19/19 22:00 Urine Bilirubin Negative (NEGATIVE) 01/19/19 22:00 Urine Urobilinogen Normal mg/dL (0.2-1.0) 01/19/19 22:00 Ur Leukocyte Esterase Neg [place]/uL (Negative) 01/19/19 22:00 Urine WBC (Auto) < 1 /hpf (0-5) 01/19/19 22:00 Urine RBC (Auto) 4 /hpf (0-3) H 01/19/19 22:00 Ur Squamous Epith Cells < 1 /hpf (0-5) 01/18/19 10:46 Hyaline Casts 3-5 /lpf (0-2) H 01/18/19 10:46 Vancomycin Trough 8.8 ug/mL (5.0-10.0) 01/21/19 07:49 RPR Titer 1:1 (NONREACTIVE) 01/20/19 17:00 RPR Reactive (NONREACTIVE) H 01/20/19 17:00 T.pallidum Ab (FTA-ABS) Reactive minimal (Nonreactive) H 01/20/19 17:00 - Hospital Course Hospital Course: Upon Admission This is an 88 year old with PMHx of Hypertension, Hyperlipidemia, CAD with 4 stents, Anemia, Chronic Venous Stasis with Chronic Tibial Ulcer and Dementia who presents to the ED with left lower leg pain and drainage from leg wound. Patient is pleasantly demented. Reports he arrived via taxi. His son is unaware of his admission to the hospital. Patient reports this has been happening for a while. Admits to left leg pain, itchiness, and irritation. Denied any associated fever, chills, chest pain, shortness of breath, abdominal pain, n/v/d/c, or urinary symptoms. Hospital Course 88 yo male admitted for left lower venous stasis and dermatitis. Patient was treated with IV abx as skin was scaling off increasing chances of cellulitis. Patient was treated with lac-hydrin and silvadene for the chronic leg wound. Syphilis tests were ordered to rule out any secondary causes of the AMS. Tested positive for RPR and FTA-Abs. Neuro was consulted for AMS and possible LP. Neurology team failed to do LP due to arthritic changes in the back. IR team was consulted who deferred to anasthesiology team for LP at bedside. Family later decided that they would prefer no LP. Patient was scheduled for PICC line and IV infusions at home to treat neurosyphilis. Patient will be discharged to [facility] for continued care. Discharge Plan 1. Patient stable for discharge to [facility] as per Dr. Mercer. 2. Patient will need to followup with primary medical doctor within a week of discharge from hospital. 3. Patient will continue taking the medications as reconciled at the [facility] facility. Most importantly patient will need to complete penicillin IV course for next 10 days to be given every fours at [facility] facility. 4. Patient will continue wound care as well with lac-hydrin cream applied to site of dry skin as well as silvadene ointment applied topically. 5. Patient family understands the plan as above and agrees. Discharge Exam - Additional Findings Additional findings: - Constitutional Appears: Non-toxic, No Acute Distress - Head Exam Head Exam: ATRAUMATIC, NORMAL INSPECTION, NORMOCEPHALIC - Eye Exam Eye Exam: EOMI, Normal appearance Pupil Exam: NORMAL ACCOMODATION - ENT Exam ENT Exam: Mucous Membranes Moist, Normal Exam - Neck Exam Neck Exam: Full ROM, Normal Inspection - Respiratory Exam Respiratory Exam: Clear to Ausculation Bilateral, NORMAL BREATHING PATTERN. absent: Accessory Muscle Use, Rales, Rhonchi, Wheezes, Respiratory Distress, Stridor - Cardiovascular Exam Cardiovascular Exam: REGULAR RHYTHM, +S1, +S2 - GI/Abdominal Exam GI & Abdominal Exam: Soft, Normal Bowel Sounds. absent: Distended, Firm, Guarding, Rigid, Tenderness, Rebound - Extremities Exam Additional comments: Chronic venous stasis noted L> R Left anterior tibial ulcer noted, some drainage, non-malodorous, skin is dry and scaly (improving) Left lower extremity dressed in patrick bandage - Back Exam Back Exam: NORMAL INSPECTION - Neurological Exam Neurological Exam: Alert, Awake, Oriented x3 - Skin Skin Exam: Dry, Intact, Normal Color, Warm Discharge Plan - Discharge Medications Prescriptions: Penicillin G Benzathine [Bicillin l-A] 1,200,000 unit IV Q4H #60 syringe - Follow Up Plan Condition: STABLE Disposition: REHAB FACILITY/REHAB UNIT Instructions: Syphilis (DC), Cellulitis (DC), Altered Mental Status (GEN) Additional Instructions: 1. Patient stable for discharge to [facility] as per Dr. Mercer. 2. Patient will need to followup with primary medical doctor within a week of discharge from hospital. 3. Patient will continue taking the medications as reconciled at the [facility] facility. Most importantly patient will need to complete penicillin IV course for next 10 days to be given every fours at [facility] facility. 4. Patient will continue wound care as well with lac-hydrin cream applied to site of dry skin as well as silvadene ointment applied topically. 5. Patient family understands the plan as above and agrees. Referrals: Godwin Mercer Jr., MD [Medical Doctor] - Camron Robert DPM [Staff Provider] -
--- NOTE | 2019-01-29 15:00 | RAD ---
Date of service: 01/29/2019 HISTORY: PICC LINE COMPARISON: Comparison made with prior chest radiograph 08/26/2018. TECHNIQUE: 1 view obtained. FINDINGS: In situ right-sided PICC line with tip in the SVC. LUNGS: No active pulmonary disease. PLEURA: No significant pleural effusion identified, no pneumothorax apparent. CARDIOVASCULAR: Aorta ectatic and uncoiled with mild to moderate aortic atherosclerotic calcification present. Heart remains enlarged. OSSEOUS STRUCTURES: No significant abnormalities. VISUALIZED UPPER ABDOMEN: Normal. OTHER FINDINGS: None. IMPRESSION: No active disease. In situ right-sided PICC line as above.
[2019-01-29] MEDS ORDERED: Penicillin G Benzathine 1.2 Mill Unit/2 ml Syr IM ONE (15:30)
[2019-01-29] MEDS: SODIUM CHLORIDE IVPB SCH ×2 (19:00→21:48)
[2019-01-29] MEDS: PENICILLIN POTASSIUM MU IVPB SCH ×2 (19:00→21:48)
[2019-01-30 01:22] VITALS: RESP 20
[2019-01-30 08:06] VITALS: PULSE 61; TEMP 98.2; O2SAT 96
[2019-01-30] MEDS: Pantoprazole 40 mg EC Tab PO SCH (10:11)
[2019-01-30] MEDS: Saccharomyces Boulardi 250 mg Cap PO SCH (10:11)
[2019-01-30] MEDS: Metoprolol Succinate 25 mg XL Tab PO SCH (10:12)
[2019-01-30] MEDS: Enoxaparin 40 mg Syringe SC SCH (10:12)
[2019-01-30] MEDS: Silver Sulfadiazine 1% Cream (20 gm) TOP SCH (10:13)
[2019-01-30] MEDS: Ammonium Lactate 12% Lotion (225 g) EXT SCH (10:13)
[2019-01-30 10:19] VITALS: BP 95/58
== END 2019-01-30 15:28 | DRG 57 ==
LOC: C.ER 09:08 → C.9E 11:18 → C.5S 11:56
PROVIDERS: ADMIT Internal Medicine; ATTEND Internal Medicine
PROC: 02HV33Z Insertion of Infusion Device into Superior Vena Cava, Percutaneous Approach (ICD-10-PCS; principal; 2019-01-29)
DX: A52.3 Neurosyphilis, unspecified (principal); L03.116 Cellulitis of left lower limb; G93.40 Encephalopathy, unspecified; D64.9 Anemia, unspecified; E78.5 Hyperlipidemia, unspecified; F03.90 Unspecified dementia, unspecified severity, without behavioral disturbance, psychotic disturbance, mood disturbance, and anxiety; I10 Essential (primary) hypertension; I25.10 Atherosclerotic heart disease of native coronary artery without angina pectoris; I48.91 Unspecified atrial fibrillation; I87.2 Venous insufficiency (chronic) (peripheral); R31.29 Other microscopic hematuria; Z95.5 Presence of coronary angioplasty implant and graft; K21.9 Gastro-esophageal reflux disease without esophagitis; Z68.21 Body mass index [BMI] 21.0-21.9, adult